=== PATIENT | male | born 1985 | race Two or more races ===

== ENCOUNTER 2024-12-09 08:19 | Outpatient (AMB) | payer OTHER, SELFPAY ==
--- OUTSIDE RECORDS SUMMARY | 2024-12-05 13:00 | XMS_ITS | Encounter Summary ---
Author Organization [facility] Address [address] [place] [phone] Care Team Providers Care Rail Gang Supervisor Name Role Phone Thomas Farmer MD Primary Care Provider [phone] Reason for Visit * Reason Comments Procedure Excision lesion fore head Encounter Details Date Type Department Care Team (Latest Contact Info) Description 12/05/2024 1:00 PM EDT Procedure visit Plastic & Reconstructive Surgery [facility] [address] [place] [phone] Greg Ugarte DO [address] [address] Disorder of soft tissue (Primary Dx) Social History Tobacco Use Types Packs/Day Years Used Date Smoking Tobacco: Never Smokeless Tobacco: Never Alcohol Use Standard Drinks/Week Comments Yes 0 (1 standard drink = 0.6 oz pur e alcohol) Sex and Gender Information Value Date Recorded Sex Assigned at Not on file Legal Sex Male 12:56 PM EST Gender Identity Not on file Sexual Orientation Not on file documented as of this encounter Plan of Treatment Upcoming Encounters Date Type Department Care Team (Late st Contact Info) Description 12/15/2024 3:00 PM EDT Office Visit Plastic & Reconstructive Surgery [facility] [address] [place] [phone] Nhi Alaniz PA [address] [place] [address] [place] [phone] documented as of this encounter Procedures Procedure Name Priority Date/Time Associated Diagnosis Comments TISSUE EXAM Routine 12/05/2024 1:58 PM EDT Disorder of soft tissue documented in this encounter Results * Tissue exam (12/05/2024 1:58 PM EDT) Final Diagnosis Skin, forehead-excision : -LIPOMA 12/08/2024 10:[address] [facility] Clinical Information Disorder of soft tissue M79.9 12/08/2024 10:[address] [facility] Gross Description A. Forehead, excision lesion ink at 12: Labeled forehead . Received in formalin is a 2.1 x 1.8 x 0.5 cm yellow-de la torre fairly well-circumscribe d fibrofatty tissue fragment. The cut surfaces are comprised of glistening yellow adipose tissue. There is no areas of hemorrhage or necrosis. Also received in the same container is a 3.8 x 0.8 cm and oriented de la torre-white skin ellipse excised to depth of 0.6 cm. There is blue ink on one edge designating 12:00 per the requisition. The 9-12-3 o'clock margin is inked blue, the 3-6-9 o'clock margin is inked black, and the epidermis of the 3:00 tip is inked green. The cut surfaces are comprised of de la torre-white to yellow fibroadipose tissue. Multiple Effect Evaporator Operator sections of both tissues are submitted one cassette, three pieces. BG 12/08/2024 10:[address] [facility] Disclaimer Unless otherwise specified, all tissue is 10% NB formalin fixed and paraffin embedded. 12/08/2024 10:[address] [facility] Tissue Forehead structure / Unknown Non-blood Collection / Unknown 12/05/2024 1:58 PM EDT 12/05/2024 1:58 PM EDT us Greg Ugarte DO LAB PATHOLOGY ORDERABLES Fin al Result [facility] [address] [place], [place] [address] [phone] documented in this encounter Visit Diagnoses Diagnosis Disorder of soft tissue- Primary Disorders of soft tissue, unspecified documented in this encounter Care Teams Rail Gang Supervisor Relationship Specialty Start Date End Date Thomas Farmer MD [address] [place] [phone] PCP - General Internal Medicine 10/15/24 documented as of this encounter
--- OUTSIDE RECORDS SUMMARY | 2024-12-09 08:26 | XMS_ITS | Clinical Summary ---
Author Organization [facility] Address [address] [place] [address] Care Team Providers Care Apprentice Cook Name Role Phone Unavailable Primary Care Provider Unavailabl e Social History Tobacco Use Types Packs/Day Years Used Date Smoking Tobacco: Never Assessed Sex and Gender Information Value Date Recorded Sex Assigned at Not on file Legal Sex Male 6:21 PM EDT Gender Identity Not on file Sexual Orientation Not on file Plan of Treatment Health Maintenance Due Date Last Done Comments Hepatitis C Virus Screening 1983 HIV Screening 1996 DTaP/Tdap/Td Vaccines (1 - Tdap) 2002 Hepatitis B Vaccines (1 of 3 - 19+ 3-dose series) 2002 COVID-19 Vaccine (2023-2 5 season) 2024 HPV Vaccines Aged Out No longer eligi ble based on patient's age to complete this topic Pneumococcal Vaccine: Pediat goyo (0-5 Years) and At-Risk Patients (6 to 49 Years) Aged Out No longer eligible b ased on patient's age to complete this topic
--- OUTSIDE RECORDS SUMMARY | 2024-12-09 08:26 | XMS_ITS | Data Portability ---
Author Organization [facility] Behzad Moore [facility] Surgeons [facility], [facility] Address [address] [place] [address] Care Team Providers Care Admin Assistant Name Role Phone ISRA PASTRANAY Primary Care Provider Assessment No assessment recorded. Plan of Treatment Reminders Order Date Submit Date Provider Last Modified By Organization Details Last Modified Time Details Appointments None recorded. Lab None recorded. Referral None recorded. Procedures None recorded. Surgeries None recorded. Imaging XR, foot, 3 or more view - new pt 3 views lorenzo foot wb rm 107 2024 025 rmessenger [facility] Office, [address], [address], [place], [address], 5 11:18:54 XR, knee, 4 or more view - rm 201, left knee pain 2023 024 [email or web address] [facility] Office, [address], [address], [place], [address], 4 11:46:18 XR, foot, 3 or more view - New left foot, room UC2 2023 024 mmolpelton [facility], [address], [address], [place], [address], 4 15:31:30 MRI, foot, w/o contrast - Left foot pain, 5th MT stress fx 2023 024 [facility]), [address] [place], [address], 18:02:19 Medication Orders meloxicam 15 mg tablet 2023 [address] [facility][id number], [address] [place] [address], [address], 15:31:30 meloxicam 15 mg tablet 2023 [address] [facility][id number], [address] [place] [address], [address], 12:33:23 Patient TargetsNo targets recorded. Patient InstructionsNo instructions recorded. Reason for Referral None Reported. Results Created Date Observation Date Name Description Value Unit Range Abnormal Flag Note LastModifiedBy Organization Detail LastModifiedTime 11/30/19 24 12/01/2023 CBC/D /PLT W/ REFLE X OSCAR TIN WBC 17.3 x10e3 /uL 3.4-10 .8 above high normal Not Available [facility] ([facility]) [address] [place], [address], 12/05/2023 00:05:22 11/30/19 24 12/01/2023 CBC/D /PLT W/ REFLE X OSCAR TIN RBC 5.17 x10e6 /uL 4.14-5 .80 normal Not Available [facility] ([facility]) [address] [place], [address], 12/05/2023 00:05:22 11/30/19 24 12/01/2023 CBC/D /PLT W/ REFLE X OSCAR TIN hemoglobin 13.7 g/dL 13.0-1 7.7 normal Not Available [facility] ([facility]) [address] [place], [address], 12/05/2023 00:05:22 11/30/19 24 12/01/2023 CBC/D /PLT W/ REFLE X OSCAR TIN hematocrit 43.5 % 37.5-5 1.0 normal Not Available [facility] ([facility]) [address] [place], [address], 12/05/2023 00:05:22 11/30/19 24 12/01/2023 CBC/D /PLT W/ REFLE X OSCAR TIN MCV 84 fL 79-97 normal Not Available [facility] ([facility]) [address] [facility], [place], [address], 12/05/2023 00:05:22 11/30/19 24 12/01/2023 CBC/D /PLT W/ REFLE X OSCAR TIN MCH 26.5 pg 26.6-3 3.0 below low normal Not Available [facility] ([facility]) [address] [facility], [place], [address], 12/05/2023 00:05:22 11/30/19 24 12/01/2023 CBC/D /PLT W/ REFLE X OSCAR TIN MCHC 31.5 g/dL 31.5-3 5.7 normal Not Available [facility] ([facility]) [address] [place], [address], 12/05/2023 00:05:22 11/30/19 24 12/01/2023 CBC/D /PLT W/ REFLE X OSCAR TIN RDW 13.1 % 11.6-1 5.4 Not Available [facility] ([facility]) [address] [place], [address], 12/05/2023 00:05:22 11/30/19 24 12/01/2023 CBC/D /PLT W/ REFLE X OSCAR TIN platelets 285 x10e3 /uL 150-45 0 normal Not Available [facility] ([facility]) [address] [facility], [place], [address], 12/05/2023 00:05:22 11/30/19 24 12/01/2023 CBC/D /PLT W/ REFLE X OSCAR TIN neutrophils 80 % not estab. normal Not Available [facility] ([facility]) [address] [facility], [place], [address], 12/05/2023 00:05:22 11/30/19 24 12/01/2023 CBC/D /PLT W/ REFLE X OSCAR TIN lymphs 13 % not estab. normal Not Available [facility] ([facility]) [address] [facility], [place], [address], 12/05/2023 00:05:22 11/30/19 24 12/01/2023 CBC/D /PLT W/ REFLE X OSCAR TIN monocytes 6 % not estab. normal Not Available [facility] ([facility]) [address] [facility], [place], [address], 12/05/2023 00:05:22 11/30/19 24 12/01/2023 CBC/D /PLT W/ REFLE X OSCAR TIN eos 0 % not estab. normal Not Available [facility] ([facility]) [address] [facility], [place], [address], 12/05/2023 00:05:22 11/30/19 24 12/01/2023 CBC/D /PLT W/ REFLE X OSCAR TIN basos 0 % not estab. normal Not Available [facility] ([facility]) [address] [facility], [place], [address], 12/05/2023 00:05:22 11/30/19 24 12/01/2023 CBC/D /PLT W/ REFLE X OSCAR TIN immature cells OIL SPRAYER Not Available [facility] ([facility]) [address] [place], [address], 12/05/2023 00:05:22 11/30/19 24 12/01/2023 CBC/D /PLT W/ REFLE X OSCAR TIN neutrophils (absolute) 13.8 x10e3 /uL 1.4-7. 0 above high normal Not Available [facility] ([facility]) [address] [facility] [place], [address], 12/05/2023 00:05:22 11/30/19 24 12/01/2023 CBC/D /PLT W/ REFLE X OSCAR TIN lymphs (absolute) 2.3 x10e3 /uL 0.7-3. 1 normal Not Available [facility] ([facility]) [address] [facility], [place], [address], 12/05/2023 00:05:22 11/30/19 24 12/01/2023 CBC/D /PLT W/ REFLE X OSCAR TIN monocytes(ab solute) 1.0 x10e3 /uL 0.1-0. 9 above high normal Not Available [facility] ([facility]) [address] [facility], [place], [address], 12/05/2023 00:05:22 11/30/19 24 12/01/2023 CBC/D /PLT W/ REFLE X OSCAR TIN eos (absolute) 0.0 x10e3 /uL 0.0-0. 4 normal Not Available [facility] ([facility]) [address] [facility], [place], [address], 12/05/2023 00:05:22 11/30/19 24 12/01/2023 CBC/D /PLT W/ REFLE X OSCAR TIN baso (absolute) 0.0 x10e3 /uL 0.0-0. 2 normal Not Available [facility] ([facility]) [address] [place], [address], 12/05/2023 00:05:22 11/30/19 24 12/01/2023 CBC/D /PLT W/ REFLE X OSCAR TIN immature granulocytes 1 % not estab. Not Available [facility] ([facility]) [address] [place], [address], 12/05/2023 00:05:22 11/30/19 24 12/01/2023 CBC/D /PLT W/ REFLE X OSCAR TIN immature grans (abs) 0.1 x10e3 /uL 0.0-0. 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 Not Available [facility] ([facility]) [address] [facility], [place], [address], 12/05/2023 00:05:22 11/30/1912/01/2023 CBC/D /PLT W/ REFLE X OSCAR TIN hematology comments: OIL SPRAYER Not Available [facility] ([facility]) [address] [facility], [place], [address], 12/05/2023 00:05:22 11/30/19 24 12/04/2023 CBC/D /PLT W/ REFLE X OSCAR TIN ferritin 160 NG/mL 30-400 normal Not Available [facility] ([facility]) [address] [facility], [place], [address], 12/05/2023 00:05:22 11/30/19 24 12/01/2023 ANKIT+R F QN ANKIT direct Negati ve negati ve Not Available [facility] ([facility]) [address] [place], [address], 12/05/2023 00:05:23 11/30/1912/01/2023 ANKIT+R F QN rheumatoid factor (rf) 10.6 IU/mL <14.0 normal Not Available [facility] ([facility]) [address] [place], [address], 12/05/2023 00:05:23 11/30/19 24 12/01/2023 URIC ACID uric acid 8.6 mg/dL 3.8-8. 4 above high normal Jesusa fabien prabhakar t for gout patie nts: <6.0 Not Available [facility] ([facility]) [address], [place], [address], 12/05/2023 00:05:23 10/01/19 24 09/30/2023 MRI, foot, w/o contr ast [facility] Access ion Number : [id number] Patien t Name: Elizabeth laureano, Aditya Medica caleb Record Number : [id number] Date of : 1985 Date of Exam: 2023 Referr ing Physic bonnie: [facility], Diana a [facility] ([facility]) [address], [address] [place] [address] Exam: MR Foot (C-) CPT 85485 - Left Room Descri ption: [facility] Verio 3.0T MR Foot (C-) CPT 46237 CLINIC AL INDICA TION: M79.67 2 - Pain in left foot, , Left foot pain, 5th MT stress fx TECHNI QUE: Multip lanar, multis equenc e non-co ntrast MRI of the left mid to forefo ot was perfor med. COMPAR MARCO: None. FINDIN GS: Bones: Mild bone marrow edema within the proxim al metadi aphysi s of the fourth metata rsal. No eviden ce of fractu re or osteoc hondra l lesion . Mild degene rative change s at the tarsom etatar sarah joints . Tendon s/Liga ments: The visual ized tendon s are normal in signal and morpho logy. The intrin sic ligame nts are intact withou t eviden ce of Lisfra nc injury . Soft Tissue s: No abnorm al edema or other signal abnorm ality. No eviden ce of Chan ?s neurom a.Ther e is focal fluid presen t betwee n the metata rsal heads, especi ally betwee n the first and second metata rsal, third and fourth metata rsals. Other: Dorsal subcut aneous edema presen t. IMPRES MAURY: Mild bone marrow edema within the proxim al metadi aphysi s of the fourth metata rsal, could repres ent a bone contus ion versus stress reacti on. Fluid presen t betwee n the metata rsal heads, could repres ent interm etatar sarah bursit is. I, Iliana Altamirano ra, MD, have review ed the images and report and concur with the reside nt, Anila Stanley MD's, joelle briggs. Electr onical ly Signed By: Iliana Altamirano ra, MD [facility] ([facility]) [address], [place], [address], 10/02/2023 08:39:18 11/28/19 24 11/28/2023 XR, knee, 4 or more view http:/ [email or web address] ?Encry pted=s hAaTro YD8dLq bEUv6g %2BXZw aYqtaq 0bqfl% 2Fg9IQ a4ajBk vP9nXo QUaueC m3YtLR FvZlgJ JJ8mAn HZtai3 1m4845 AC0Kpb XuHWaX eUC8mr 84%3D INTERFACE [facility] [address], [place], [address], 11/28/2023 10:16:44 11/28/19 24 11/28/2023 XR, knee, 4 or more view http:/ [email or web address] ?Encry pted=s hAaTro YD8dLq bEUv6g %2BXZw aYqtaq 0bqfl% 2Fg9IQ a4ajBk vP9nXo QUaueC m3YtLR FvZl JJ8mAn HZtai3 6x2259 AC0Kpb XuHWaX eUC8mr 84%3D INTERFACE [facility] [address], [place], [address], 11/28/2023 10:16:46 01/11/20 24 09/20/2022 imagi ng/di agnos tic resul t No observ ation record ed. [email or web address] Not Available 12/14 04:40:51 01/11/20 24 10/26/2022 imagi ng/di agnos tic resul t No observ ation record ed. [email or web address] Not Available 12/14 04:40:57 01/11/2010/26/2022 imagi ng/di agnos tic resul t No observ ation record ed. [email or web address] Not Available 12/14 04:40:58 01/11/2005/11/2023 imagi ng/di agnos tic resul t No observ ation record ed. [email or web address] Not Available 12/14 04:41:10 09/05/19 25 09/04/2024 XR, foot, 3 or more view http:/ [email or web address] ?Encry pted=s hAaTro YD8dLq bEUv6g %2BXZw aYqtaq 0bqfl% 2Fg9IQ a4ajBk vP9nXo QUaueC m3YtLR FvZlgJ JJ8mAn HZtai3 9e7600 AC0Kla nyBUqC uKiQtr MwF INTERFACE [facility] [address], [place], [address], 09/04/2024 13:24:38 09/05/19 25 09/04/2024 XR, foot, 3 or more view http:/ [email or web address] ?Encry pted=s hAaTro YD8dLq bEUv6g %2BXZw aYqtaq 0bqfl% 2Fg9IQ a4ajBk vP9nXo QUaueC m3YtLR FvZlgJ JJ8mAn HZtai3 2w2531 AC0Kla nyBUqC uKiQtr MwF INTERFACE [facility] [address], [place], [address], 09/04/2024 13:24:40 11/27/19 25 11/20/2024 nerve condu ction study /EMG, lower extre mity (PROC ) No observ ation record ed. [facility] Scheduling Dept [address] [facility], [place], [address], 11/26/2024 15:42:10 Result Notes Documentation Provider Name and Address Organization Details Recorded Time Mri, Foot, W/o Contrast : [facility] Accession Number: [id number] Patient Name: Aditya Levine Date of : 1985 Date of Exam: 09-30-2023 Referring Physician: Esmer Simmons [facility] ([facility]) [address] [facility], [address] [place] [address] Exam: MR Foot (C-) CPT 29463 - Left Room Description: [facility] 3.0T MR Foot (C-) CPT 63783 CLINICAL INDICATION: M79.672 - Pain in left foot, , Left foot pain, 5th MT stress fx TECHNIQUE: Multiplanar, multisequence non-contrast MRI of the left mid to forefoot was performed. COMPARISON: None. FINDINGS: Bones: Mild bone marrow edema within the proximal metadiaphysis of the fourth metatarsal. No evidence of fracture or osteochondral lesion. Mild degenerative changes at the tarsometatarsal joints. Tendons/Ligaments: The visualized tendons are normal in signal and morphology. The intrinsic ligaments are intact without evidence of Lisfranc injury. Soft Tissues: No abnormal edema or other signal abnormality. No evidence of Chan?s neuroma.There is focal fluid present between the metatarsal heads, especially between the first and second metatarsal, third and fourth metatarsals. Other: Dorsal subcutaneous edema present. IMPRESSION: Mild bone marrow edema within the proximal metadiaphysis of the fourth metatarsal, could represent a bone contusion versus stress reaction. Fluid present between the metatarsal heads, could represent intermetatarsal bursitis. I, Iliana Lam MD, have reviewed the images and report and concur with the resident, Tavo Stanley MD's, findings. Electronically Signed By: Iliana Simmons PA-C [address], [place], [address], [place] - [facility] 10/02/2023 08:39:18 Xr, Knee, 4 Or More View : [email or web address] ncrypted=plUoOkeFP4dMvwIRl 6g%6EZMcdJensh2adim%2Fg9IQ j6unMlrC3zOsYPdyyLa7ZzGDZk GocNWW1fAaBNzgm12g0663VY8G wiVoIOnEcCZ9xf68%3D Not Available [facility] 11/28/2023 10:16:45 Xr, Knee, 4 Or More View : [email or web address] ncrypted=ejKuKldIH3gLjvMCj 6g%0SGPnkAortg6opxe%2Fg9IQ h2sqVtbS8qBbRRkawPy3IxZNGp QxkWYM9qYkMJten99d0802QW8G nbDtPWlZyXV1ov75%3D Not Available [facility] 11/28/2023 10:16:46 Xr, Foot, 3 Or More View : [email or web address] ncrypted=qoUqAveRT5aDtiWGs 6g%5ZOTkoAajep8lziw%2Fg9IQ m5sgWjfB3mIgFWwcoHl4QlYOOy FbaDNC9nSrKScft29e7741KS9F lanyBUqCuKiQtrMwF Not Available [facility] 09/04/2024 13:24:39 Xr, Foot, 3 Or More View : [email or web address] ncrypted=zzSwJzbNZ1hCpvASm 6g%4MDUqzEgerf6hoaj%2Fg9IQ b5ejDdgC9wEcUNounJf6IqPXAs IaoKZN4jXjMGgvm34o0993WC7N lanyBUqCuKiQtrMwF Not Available [facility] 09/04/2024 13:24:40 Problems Name Problem SNOMED Code Status Onset Date Resolution Date Notes Provider Name and Address Organization Details Recorded Time Pain in left foot 8902107345860 07 Active 2023 LA serna [place] - [facility] 05/10/202 4 13:07:19 Stress fracture of metatarsal bone of left foot 0145658270065 9108 Active 2023 Esmer carlson PA-C [address], [place], [address], [facility] 4 15:30:52 Pain of left knee joint 2149805875796 07 [facility] 4 10:08:21 Problem Notes None recorded. Procedures Surgical History Date Name Laterality Status Provider Name and Address Organization Details Recorded Time 11/28/2023 Sports Knee 4&1 completed Felipe Flowers PA-C [address], [place], [address], [facility] 11/28/2023 12:30:27 09/03/2023 Sports Knee 4&1 completed Felipe Flowers PA-C [address], [place], [address], [facility] 09/03/2023 16:40:07 Imaging Results None recorded. Procedure Notes None recorded. Medical Equipment None Reported. Allergies No known drug allergies Medications Name Sig Start Date Stop Date Status Note LastModified by Organization Details LastModified Time tizanidine 2 mg tablet TAKE 1 TABLET BY MOUTH EVERY 8 HOURS, FOR 7 DAYS, NEEDED FOR MUSCLE SPASM active Not Available Not Available No t Available diltiazem CD 240 mg capsule,ext ended release 24 hr TAKE 1 CAPSULE BY MOUTH EVERY DAY active Not Available Not Available No t Available meloxicam 15 mg tablet TAKE 1 TABLET BY MOUTH EVERY DAY WITH A MEAL 2024 active Not Available Not Available Not Avai lable prednisone 20 mg tablet TAKE 2 TABLETS BY MOUTH ONCE DAILY FOR 7 DAYS WITH FOOD OR MILK active Not Available Not Available No t Available amlodipine 2.5 mg tablet TAKE 1 TABLET BY MOUTH EVERY DAY active Not Available Not Available No t Available chlorthalid one 25 mg tablet TAKE 1 TABLET BY MOUTH EVERY DAY active Not Available Not Available No t Available allopurinol 100 mg tablet TAKE 1 TABLET BY MOUTH TWICE A DAY active Not Available Not Available No t Available peg-electro lyte solution 420 gram oral solution PLEASE SEE ATTACHED FOR DETAILED DIRECTION S active Not Available Not Available No t Available methylpredn isolone 4 mg tablets in a dose pack TAKE 6 TABLETS ON DAY 1 DIRECTED ON PACKAGE AND DECREASE BY 1 TAB EACH DAY FOR A TOTAL OF 6 DAYS active Not Available Not Available No t Available lisinopril 40 mg tablet TAKE 1 TABLET BY MOUTH EVERY DAY active Not Available Not Available No t Available Thalitone 15 mg tablet TAKE 1 TABLET BY MOUTH EVERY DAY active Not Available Not Available No t Available oxycodone 5 mg tablet TAKE 1 TABLET BY MOUTH EVERY 6 HOURS,X3 DAYS NEEDED FOR PAIN 09/02 completed Not Available Not Available Not Available oxycodone HCl-oxycodo ne-ASA oxyCODONE HCl 5MG Tablet 09/02 completed Statu s: 'Curr ent'; Not Available Not Available Not Available EC-Naproxen 500 mg tablet,curly yed release TAKE 1 TABLET BY MOUTH TWICE A DAY FOR 5 DAYS active Not Available Not Available No t Available Wegovy 1 mg/0.5 mL subcutaneou s pen injector INJECT 1 MG SUBCUTANE OUS INFUSION EVERY 7 DAYS,X4 WEEK(S) active Not Available Not Available No t Available Wegovy 0.5 mg/0.5 mL subcutaneou s pen injector INJECT 0.5 ML SUBCUTANE OUSLY EVERY WEEK DIRECTED. ROTATE INJECTION SITES (ABDOMEN, THIGH OR UPPER ARM) active Not Available Not Available No t Available Vitals Date Recorded Body height Body mass index (BMI) Body weight Provider Name and Address Organization Details Last Updated DateTime 09/03/2023 172.72 cm 44.1 kg/m2 816047.79 g JENNIFER CUETO [facility] 09/03/2023 08:37:55 Date Recorded Body height Body mass index (BMI) Body weight Provider Name and Address Organization Details Last Updated DateTime 09/04/2024 172.72 cm 45 kg/m2 285446.34 g Kareen Mcclure [facility] 09/04/2024 13:18:12 Date Recorded Body height Body mass index (BMI) Body weight Provider Name and Address Organization Details Last Updated DateTime 09/21/2023 172.72 cm 45.3 kg/m2 633474.53 g LA CHAVIS [facility] 09/21/2023 13:07:07 Date Recorded Body height Body mass index (BMI) Body weight Provider Name and Address Organization Details Last Updated DateTime 10/18/2023 172.72 cm 45 kg/m2 634445.34 g LA PALMIRA [facility] 10/18/2023 14:28:17 Date Recorded Body height Body mass index (BMI) Body weight Provider Name and Address Organization Details Last Updated DateTime 11/28/2023 172.72 cm 45 kg/m2 532971.34 g JOHNNIE BRANDEE [facility] 11/28/2023 10:08:11 Social History None recorded. Functional Status None recorded. Mental Status None recorded. Family History Nothing Reported. Medical History No medical history recorded. Past Encounters Encounter ID Performer Location Encounter Start Date Encounter Closed Date Diagnosis/Indication Diagnosis SNOMED-CT Code Diagnosis ICD10 Code Diagnosis Note [id number] RAO Castaneda [address] [place] [address] 09/03/2023 08:29:37 09/24/2023 08:16:25 Pain of right knee joint 7803102682 62651 M25.561 Chondromal acia of right patella 3372407455 3702000 M22.41 [id number] Esmer Simmons [place] [address] 09/21/2023 12:59:57 10/16/2023 12:01:57 Pain in left foot 2162364387 63412 M79.672 Stress fra cture of metatarsal bone of left foot 8922285301 2782373 M84.375A [id number] RAO Romero [address] [place] [address] 10/18/2023 14:13:30 11/20/2023 13:16:42 Stress fracture of metatarsal bone of left foot 7830206889 0474023 M84.375A [id number] RAO Castaneda [address] [place] [address] 11/28/2023 09:49:01 12/17/2023 11:46:18 Pain of left knee joint 5145917564 96976 M25.996 [id number] RAO Yoder [address] [place] [address] 09/04/2024 12:50:13 09/22/2024 11:18:54 Pain in both feet 0565399493 3552286 M79.671 M79.672 Health Concerns Section Related Observation LastModified by Organization Detai ls LastModified Time None Recorded Concern Status LastModified by Organization Details LastModified Time None Recorded Advance Directives Directive None Recorded Payers Insurance Date Sequence Insurance Name Policy Number Policy Baez Covered Member ID Baez Member ID Guarantor Name 10/18/2023 1 [facility] - DIRECT CONNECTORCARE TYPE I (HMO) Aditya Carmenatty [id number] Aditya Carmenatty 09/02/2024 1 [facility] [id number] Aditya Carmenatty [id number] Aditya Carmenatty 10/18/2023 1 [facility] - DIRECT CONNECTORCARE TYPE I (HMO) Aditya Carmenatty [id number] Aditya Carmenatty 09/02/2024 2 [place] [facility] Aditya Carmenatty [id number] Aditya Carmenatty 09/22/2024 1 [facility] ([facility] [id number] Aditya Carmenatty [id number] Aditya Carmenatty 10/09/2024 2 [facility]LY [facility] - DIRECT - [place] (HMO) [id number] Aditya Carmenatty [id number] Aditya Carmenatty
--- NOTE | 2024-12-09 11:10 | A.OFFVIS_ITS ---
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 Allergies No Known Allergies (No Known Allergies*) Allergy (Verified 12/09/24 11:11) Medication List - Last Reconciled 12/09/24 by Sesar Nick MD allopurinol 100 mg PO DAILY amlodipine-benazepril 2.5-10 mg 1 cap PO DAILY chlorthalidone 25 mg PO DAILY diltiazem HCl ER (Tiazac) 240 mg PO DAILY lisinopril 40 mg PO DAILY meloxicam 15 mg PO DAILY 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 Regained all back Wakes up: 3am, Sleeps: 10pm Breakfast: skips Lunch: 1pm (rice, beans, chicken) Dinner: 6pm Snacks: 2 bananas before lunch, 7-8pm (occasionally cookies) Exercise: none Beverages: Coffee: none, Tea: 1 cup/d with milk and sugar, Soda: none, Juice: none, ETOH: none PFSH Medical History (Updated 12/09/24 @ 11:18 by Sesar Nick MD) History of herniated intervertebral disc Asthma DJD (degenerative joint disease) GERD (gastroesophageal reflux disease) Aortic stenosis Hypertension Morbid obesity Surgical History (Updated 12/09/24 @ 11:18 by Sesar Nick MD) History of back surgery Family History (Updated 11/19/24 @ 14:58 by Krystina Bowers CMA) Mother Hypertension Heart problem Father Diabetes type 2 Hypertension Sleep apnea Daughter No problems noted. Daughter No problems noted. Social History (Updated 11/19/24 @ 14:58 by Krystina Bowers CMA) Alcohol intake: current Alcohol intake frequency: holidays/special occasions only Patient Tobacco Use Status: Never used Tobacco Telehealth Telehealth Telehealth Platform: Telephone Location of provider rendering services: practice address Location of patient: address on file Patient Identification confirmed using: Name, : Yes Telehealth method: voice only Patient verbally consented to treatment: Yes Patient verbally consented to billing insurance company: Yes Patient informed of any privacy concerns related to visit: Yes Minutes spent on Phone/Video with Pt.: 45 Assessment & Plan Assessment & Plan (1) Morbid obesity: Code(s): E66.01 - Morbid (severe) obesity due to excess calories Category: Medical Plan: 1. Plan for lap sleeve gastrectomy. If diaphragmatic or ventral hernias are present at time of surgery, these will be repaired laparoscopically as well. I emphasized the importance of close follow-up, adherence to instructions and good communication. The surgery does not replace the need to change your lifestlyle which is the cause of the obesity problem. The surgery provides the motivation to try again to change your lifestyle, it reduces the appetite and make the transition to a better lifestyle easier and doubles the amount of weight you would lose compared to doing the lifestyle change without the surgery. You will need to be on a liquid diet with protein shakes for 2 weeks before surgery to maximize weight loss and boost your nutritional status to recover better from surgery and also for the first two weeks after surgery to let the stomach heal before we introduce other foods. After the first 2 weeks we will introduce protein bars and soft foods like scrambled eggs, cottage cheese and yogurt and after the 6th week will introduce meat, fish and cooked vegetables in small amounts. Over time you should be able to eat everything in small amounts. Side effects like nausea, vomiting, heartburn or abdominal pain are not common in the practice unless you are not following in the practice. This operation requires lifetime commitment to following in our practice and communication with me. You will much less weight and experience side effects if you don?t communicate or not following in the practice. Complications are rare and in our practice is about 1/10 of the national average. However, you can develop bleeding that may require transfusion (hasn?t happened for year in the practice), you may from complications (we did not have any deaths in the practice) and infections. Infections are usually a result of breakdown in communication or not understanding or following directions correctly. They are difficult to treat, they can happen during the first 6 weeks, they may require to be in the hospital for weeks or even months, not being able to eat by mouth and you may have drains and surgeries to try and correct the issue. Other risks and complications include possible conversion to an open procedure, leaks, small bowel obstruction, blood clots, cardiac, or pulmonary complications, as intermediate complications such as ulcers, insufficient weight loss and vitamin deficiencies. 2.Nutritional counseling. Start with one premade PREMIER protein (buy at [employer], or [employer], or [employer]) shake (8oz of PREMIER and NOT the whole bottle) at 10am- 12pm, 1 protein bar (16gr Fit Crunch protein bars, buy at [employer], [employer] or [employer]) at 1pm-3pm, another premade PREMIER protein (buy at [employer], or [employer], or [employer]) shake () 8oz of PREMIER and NOT the whole bottle) at 4pm-6pm, dinner at 7pm (10 forks of protein and 10 forks of salad/vegetables) and one more [employer] protein bar after dinner at 9pm-11pm. So you do 2 protein shakes, 2.5 protein bars and one meal per day. Meal to include lean meat (beef, fish, pork, turkey, chicken), or south korean yogurt, or egg whites, or beans with a salad with olive oil and fruits (berries, pears, apples, kiwi). Avoid salt, breads, potatoes, rice, pasta, desserts. 3. Each shake would be drunk slowly, like coffee in a period of 2 hours. 4. Cut each bar in 4 pieces and eat each piece in 30min to make each bar last 2 hours. 5. I emphasized the importance of measuring accurately the food portion and measure it when serving the food in plate 6. The meal portions include 10 full-size forks of meat and 10 full-size forks of salad. You always eat the meat portion but you can replace up to 5 forks for salad/vegetables with rice, potatoes or pasta, or a fruit if you like. The less you do it the better weight loss will be. 7. One full-size fork is what it can be scooped on the fork without falling aside and not what can be bit with the fork. Use regular forks like those you find in a typical restaurant. 8. Please buy the body composition scale we discussed and send me weight measurements as soon as possible and then once a week. Always include your diet and exercise plan. 9. Start walking outside daily, tracking calories with a goal of 300 calories per day, daily. Goal is to burn 2000 calories per week on exercise, which means either 300 calories daily. 10. The best choice would be to purchase a stationary bike at home that can track calories. Once you get the bike, please start stationary bike at a resistance level of 4.0 Increase level by 1.0 every 3 min to a max level of 10.0. Stay at this level for 3 min and then return to level 4.0 and repeat same steps until 300 calories are burned. Goal is to burn 2000 calories per week on exercise 11. Goal is to lose at least 1.5-2lbs per week 12. Goal to lose 10% of your weight before surgery, which is about 30lbs. Ultimate weight goal: 270lbs before surgery 13. Please follow the diet plan exactly without any change. If you don't like something about the plan or you feel hungry you need to communicate with me so I can help you revise the plan. You should not change the plan yourself 14. To be scheduled for EGD to assess the stomach's anatomy. The possibility of biopsies was discussed. Patient needs to avoid use of NSAIDs and aspirin for 1 week prior to EGD. You must be on liquids only the day before your endoscopy. Risks of perforation and bleeding was discussed with the patient. This will be an outpatient procedure with IV sedation. 15. As of tomorrow, please send me a picture of your meal plate after you measure it, but before you consume it. Orders: Orders Hemoglobin A1c Today E66.01 - Morbid (severe) obesity due to excess calories, I10 - Essential (primary) hypertension, I35.0 - Nonrheumatic aortic (valve) stenosis, J45.909 - Unspecified asthma, uncomplicated, K21.9 - Gastro-esophageal reflux disease without esophagitis H Pylori Breath Test Today E66.01 - Morbid (severe) obesity due to excess calories, I10 - Essential (primary) hypertension, I35.0 - Nonrheumatic aortic (valve) stenosis, J45.909 - Unspecified asthma, uncomplicated, K21.9 - Gastro- esophageal reflux disease without esophagitis Complete Blood Count Auto Diff Today E66.01 - Morbid (severe) obesity due to excess calories, I10 - Essential (primary) hypertension, I35.0 - Nonrheumatic aortic (valve) stenosis, J45.909 - Unspecified asthma, uncomplicated, K21.9 - Gastro-esophageal reflux disease without esophagitis Lipid Panel Today E66.01 - Morbid (severe) obesity due to excess calories, I10 - Essential (primary) hypertension, I35.0 - Nonrheumatic aortic (valve) stenosis, J45.909 - Unspecified asthma, uncomplicated, K21.9 - Gastro-esophageal reflux disease without esophagitis Comprehensive Met. Panel Today E66.01 - Morbid (severe) obesity due to excess calories, I10 - Essential (primary) hypertension, I35.0 - Nonrheumatic aortic (valve) stenosis, J45.909 - Unspecified asthma, uncomplicated, K21.9 - Gastro- esophageal reflux disease without esophagitis US abdomen comp w elastography Today E66.01 - Morbid (severe) obesity due to excess calories, I10 - Essential (primary) hypertension, I35.0 - Nonrheumatic aortic (valve) stenosis, J45.909 - Unspecified asthma, uncomplicated, K21.9 - Gastro-esophageal reflux disease without esophagitis XR chest 2V Today E66.01 - Morbid (severe) obesity due to excess calories, I10 - Essential (primary) hypertension, I35.0 - Nonrheumatic aortic (valve) stenosis, J45.909 - Unspecified asthma, uncomplicated, K21.9 - Gastro-esophageal reflux disease without esophagitis ECG 12 lead EKG Today E66.01 - Morbid (severe) obesity due to excess calories, I10 - Essential (primary) hypertension, I35.0 - Nonrheumatic aortic (valve) stenosis, J45.909 - Unspecified asthma, uncomplicated, K21.9 - Gastro-esophageal reflux disease without esophagitis FL upper GI w air Today E66.01 - Morbid (severe) obesity due to excess calories, I10 - Essential (primary) hypertension, I35.0 - Nonrheumatic aortic (valve) stenosis, J45.909 - Unspecified asthma, uncomplicated, K21.9 - Gastro- esophageal reflux disease without esophagitis Insulin Today E66.01 - Morbid (severe) obesity due to excess calories, I10 - Essential (primary) hypertension, I35.0 - Nonrheumatic aortic (valve) stenosis, J45.909 - Unspecified asthma, uncomplicated, K21.9 - Gastro-esophageal reflux disease without esophagitis IRON PROFILE Today E66.01 - Morbid (severe) obesity due to excess calories, I10 - Essential (primary) hypertension, I35.0 - Nonrheumatic aortic (valve) stenosis, J45.909 - Unspecified asthma, uncomplicated, K21.9 - Gastro-esophageal reflux disease without esophagitis Vitamin B12 and Folate Today E66.01 - Morbid (severe) obesity due to excess calories, I10 - Essential (primary) hypertension, I35.0 - Nonrheumatic aortic (valve) stenosis, J45.909 - Unspecified asthma, uncomplicated, K21.9 - Gastro- esophageal reflux disease without esophagitis Zinc Today E66.01 - Morbid (severe) obesity due to excess calories, I10 - Essential (primary) hypertension, I35.0 - Nonrheumatic aortic (valve) stenosis, J45.909 - Unspecified asthma, uncomplicated, K21.9 - Gastro-esophageal reflux disease without esophagitis C Reactive Protein Today E66.01 - Morbid (severe) obesity due to excess calories, I10 - Essential (primary) hypertension, I35.0 - Nonrheumatic aortic (valve) stenosis, J45.909 - Unspecified asthma, uncomplicated, K21.9 - Gastro- esophageal reflux disease without esophagitis Vitamin B1 Today E66.01 - Morbid (severe) obesity due to excess calories, I10 - Essential (primary) hypertension, I35.0 - Nonrheumatic aortic (valve) stenosis, J45.909 - Unspecified asthma, uncomplicated, K21.9 - Gastro-esophageal reflux disease without esophagitis Vitamin A Today E66.01 - Morbid (severe) obesity due to excess calories, I10 - Essential (primary) hypertension, I35.0 - Nonrheumatic aortic (valve) stenosis, J45.909 - Unspecified asthma, uncomplicated, K21.9 - Gastro-esophageal reflux disease without esophagitis TSH reflex Free T4 Today E66.01 - Morbid (severe) obesity due to excess calories, I10 - Essential (primary) hypertension, I35.0 - Nonrheumatic aortic (valve) stenosis, J45.909 - Unspecified asthma, uncomplicated, K21.9 - Gastro-esophageal reflux disease without esophagitis Ferritin Today E66.01 - Morbid (severe) obesity due to excess calories, I10 - Essential (primary) hypertension, I35.0 - Nonrheumatic aortic (valve) stenosis, J45.909 - Unspecified asthma, uncomplicated, K21.9 - Gastro-esophageal reflux disease without esophagitis Vitamin D 25-OH Total Today E66.01 - Morbid (severe) obesity due to excess calories, I10 - Essential (primary) hypertension, I35.0 - Nonrheumatic aortic (valve) stenosis, J45.909 - Unspecified asthma, uncomplicated, K21.9 - Gastro- esophageal reflux disease without esophagitis Referrals Nutrition/Dietitian Referral E66.01 - Morbid (severe) obesity due to excess calories, I10 - Essential (primary) hypertension, I35.0 - Nonrheumatic aortic (valve) stenosis, J45.909 - Unspecified asthma, uncomplicated, K21.9 - Gastro- esophageal reflux disease without esophagitis Behavioral Health Referral E66.01 - Morbid (severe) obesity due to excess calories, I10 - Essential (primary) hypertension, I35.0 - Nonrheumatic aortic (valve) stenosis, J45.909 - Unspecified asthma, uncomplicated, K21.9 - Gastro- esophageal reflux disease without esophagitis
[2024-12-09 11:22] VITALS: BMI 45.1
== END 2024-12-09 11:51 | disposition home or self-care (01) ==
LOC: HO.HBS 08:19
PROVIDERS: PCP Nurse Practitioner Family; Visit Provider Surgery
DX: E66.01 Morbid (severe) obesity due to excess calories (principal)
CPT/HCPCS: 99204

== ENCOUNTER 2024-12-12 13:41 | Outpatient (REF) | payer OTHER, SELFPAY ==
--- NOTE | ~2024-12-12 | XR_ITS ---
EXAMINATION: XR CHEST CLINICAL INFORMATION: E66.01 - Morbid (severe) obesity due to excess calories COMPARISON: None available. TECHNIQUE: 2 views of the chest were obtained. FINDINGS: The cardiac, hilar, and mediastinal contours are normal. The lungs are clear bilaterally. There is no pneumothorax or pleural effusion. There is no focal osseous or soft tissue abnormality. XR/XR chest 2V IMPRESSION: Normal chest. Electronically signed by: William Miller MD 12/12/2024 02:22 PM EDT
--- OUTSIDE RECORDS SUMMARY | 2024-12-12 13:45 | XMS_ITS | Clinical Summary ---
Author Organization [facility] Address [address] [place] [address] Care Team Providers Care Environmental Planner Name Role Phone Unavailable Primary Care Provider [...]
--- OUTSIDE RECORDS SUMMARY | 2024-12-12 13:45 | XMS_ITS | Clinical Summary ---
Author Organization [address] [place] [address] [place] [phone] Phone Care Team Providers Care Cleater Name Role Phone Thomas Farmer MD Primary Care Provider [phone] Allergies Active Allergy Reactions Criticality Noted Date Comments Hydrochlorothiazide Hypokalemia 11/21/2024 Spironolactone 11/21/2024 Gynaecomastia Medications acetaminophen (TYLENOL) 325 mg tablet Take 2 tablets (650 mg total) by mouth. 05/27/2021 Active albuterol HFA (PROAIR HFA ; PROVENTIL HFA ; VENTOLIN HFA) 90 mcg/actuation inhaler Inhale 2 puffs by mouth. 05/24/2017 Active allopurinoL (ZYLOPRIM) 100 mg tablet Take 1 tablet (100 mg total) by mouth 2 (two) times a day. 07/23/2024 Active amLODIPine (NORVASC) 2.5 mg tablet Take 1 tablet (2.5 mg total) by mouth 1 (one) time each day. 02/25/2024 Active budesonide (PULMICORT) 180 mcg/actuation inhaler Inhale 2 puffs by mouth. 05/24/2017 Active chlorthalidone (HYGROTON) 25 mg tablet Take 1 tablet (25 mg total) by mouth 1 (one) time each day. 05/02/2024 Active lisinopril (PRINIVIL,ZESTR IL) 40 mg tablet Take 1 tablet (40 mg total) by mouth 1 (one) time each day. 10/27/2024 Active meloxicam (MOBIC) 15 mg tablet Take 1 tablet (15 mg total) by mouth 1 (one) time each day. with food 11/12/2024 Active naproxen (EC NAPROSYN) 500 mg EC tablet Take 1 tablet (500 mg total) by mouth 2 (two) times a day. Active tiZANidine (ZANAFLEX) 2 mg tablet TAKE 1 TABLET BY MOUTH EVERY 8 HOURS, FOR 7 DAYS, NEEDED FOR MUSCLE SPASM Active dilTIAZem CD (CARDIZEM CD) 240 mg 24 hr capsule Take 1 capsule (240 mg total) by mouth 1 (one) time each day. 10/26/2024 Active Active Problems Problem Noted Date Diagnosed Date Disorder of soft tissue 11/21/2024 Encounters Date Type Department Care Team Description 12/05/2024 1:00 PM EDT Procedure visit Plastic & Reconstructive Surgery [facility] [address] [place] [address] Greg Ugarte DO Disorder of soft tissue (Primary Dx) 11/21/2024 1:30 PM EDT Consult Plastic & Reconstructive Surgery [facility] [address] [place] [phone] Jimmy Dunn PA Disorder of soft tissue (Primary Dx) from Last 3 Months Social History Tobacco Use Types Packs/Day Years Used Date Smoking Tobacco: Never Smokeless Tobacco: Never Tobacco Cessation:Counseling Given: Not Answered Alcohol Use Standard Drinks/Week Comments Yes 0 (1 standard drink = 0.6 oz pur e alcohol) Sex and Gender Information Value Date Recorded Sex Assigned at Not on file Legal Sex Male 12:56 PM EST Gender Identity Not on file Sexual Orientation Not on file Obstetrics History Last Filed Vital Signs Vital Sign Reading Time Taken Comments Blood Pressure 116/77 11/21/2024 1:07 PM EDT Pulse 74 11/21/2024 1:07 PM EDT Temperature - - Respiratory Rate - - Oxygen Saturation - - Inhaled Oxygen Concentration - - Weight 136 kg (299 lb 12.8 oz) 11/21/2024 1:07 P M EDT Height 172.7 cm (5' 8 ) 11/21/2024 1:07 PM EDT Body Mass Index 45.58 11/21/2024 1:07 PM EDT Plan of Treatment Upcoming Encounters Date Type Department Care Team (Late st Contact Info) Description 12/15/2024 3:00 PM EDT Office Visit Plastic & Reconstructive Surgery [facility] [address] [facility] [facility] [address] [place] [phone] Nhi Alaniz PA [address] [facility] [address] [place] [address] Health Maintenance Due Date Last Done Comments Hepatitis A Vaccines (1 of 2 - Risk 2-dose series) 2002 Cholesterol Screening (Lipid Panel) 04/11/2022 HIV Screening 04/11/2022 Hepatitis C Screening 04/11/2022 Social Influencers of Health Screening 04/11/2022 Hypertension/CHF/CAD Annual BMP Blood Test 04/28/2022 COVID-19 Vaccine ( season) 2024 07/24/2021, 01/27/2021, 01/06/2021 Depression Screening 05/14/2024 Influenza Vaccine (#1) 2025 , 03/05/2023, 03/12/2022, Additional history exists DTaP,Tdap,and Td Vaccines (3 - Td or Tdap) 07/26/2028 07/26/2018, 08/05/2014 Pneumococcal Vaccine: Pediatrics (0 to 5 Years) and At-Risk Patients (6 to 49 Years) (3 of 3 - PCV20 or PCV21) 2033 10/22/2018, 01/25/2017 Hepatitis B Vaccines Completed 03/01/2024, 03/01/2024, 01/17/2024 HIB Vaccines Aged Out No longer eligi ble based on patient's age to complete this topic HPV Vaccines Aged Out No longer eligi ble based on patient's age to complete this topic IPV Vaccines Aged Out No longer eligi ble based on patient's age to complete this topic MMR Vaccines Aged Out No longer eligi ble based on patient's age to complete this topic Meningococcal ACWY Vaccine Aged Out N o longer eligible based on patient's age to complete this topic Meningococcal B Vaccine Aged Out No l onger eligible based on patient's age to complete this topic RSV Immunization Patients Under 20 months Aged Out No longer eligible based on patient's age to complete this topic Varicella Vaccines Aged Out No longer eligible based on patient's age to complete this topic Procedures Procedure Name Priority Date/Time Associated Diagnosis Comments TISSUE EXAM Routine 12/05/2024 1:58 PM EDT Disorder of soft tissue from Last 3 Months Results * Tissue exam (12/05/2024 1:58 PM EDT) Final Diagnosis Skin, forehead-excision : -LIPOMA 12/08/2024 10:35 AM EDT [facility] Clinical Information Disorder of soft tissue M79.9 12/08/2024 10:35 AM EDT [facility] Gross Description A. Forehead, excision [...] de la torre-white to yellow fibroadipose tissue. Longitudinal Float Operator sections of both tissues are submitted one cassette, three pieces. BG 12/08/2024 10:35 AM EDT [facility] Disclaimer Unless otherwise specified, all tissue is 10% NB formalin fixed and paraffin embedded. 12/08/2024 10:35 AM EDT [facility] Tissue Forehead structure / Unknown Non-blood Collection / Unknown 12/05/2024 1:58 PM EDT 12/05/2024 1:58 PM EDT Greg Ugarte DO LAB PATHOLOGY ORDERABLES Fin al Result [facility] [address] [place] [address], from Last 3 Months Insurance [facility] Care Teams Cleater Relationship Specialty Start Date End Date Thomas Farmer MD [address] [place] [phone] PCP - General Internal Medicine 10/15/24
--- NOTE | 2024-12-12 13:48 | ECG_ITS ---
Test Reason : obesity Blood Pressure : */* mmHG Vent. Rate : 62 BPM Atrial Rate : 62 BPM P-R Int : 154 ms QRS Dur : 94 ms QT Int : 440 ms P-R-T Axes : 29 -11 -6 degrees QTcB Int : 446 ms Normal sinus rhythm Normal ECG When compared with ECG of 11-Jun-2014 16:28, Vent. rate has decreased by 36 bpm Referred By: Sesar Nick Electronically Signed By: YESSENIA HOOVER MD
[2024-12-12 13:55] LABS: MANUAL DIFF FLAG NO
[2024-12-12 14:15] LABS: Hematocrit 41.3 % (42.0-52.0); Hemoglobin 13.8 g/dl (14.0-18.0); Imm Gran Abs Auto 0.03 X10*3/uL (0.00-0.03); Imm Gran Pct Auto 0.3 % (0.0-0.4); Lymphocytes Absolute Auto 3.2 X10*3/uL (1.2-4.9); Mean Corpuscular HGB Conc 33.4 g/dl (31.0-36.0); Mean Corpuscular Hemoglobin 26.5 pg (27.0-33.0); Mean Corpuscular Volume 79.4 fL (80.0-98.0); NRBC Abs Auto 0.000 X10*3/uL (0.0-0.012); NRBC Pct Auto 0.0 /100WBC (0.0-0.2); Platelet Count 235 X10*3/uL (160-400); Red Blood Count 5.20 X10*6/uL (4.60-5.80); White Blood Count 11.3 X10*3/uL (4.8-10.8)
[2024-12-12 15:02] LABS: Hemoglobin A1C 143.6859 umol/L; Total Hemoglobin (HGBA1C) 3624.0186 umol/L
[2024-12-12 15:10] LABS: Alanine Aminotransferase 94 U/L (0-40); Albumin Level 4.7 g/dL (3.5-5.0); Alkaline Phosphatase 55 U/L (39-117); Anion Gap 11 (12-20); Aspartate Amino Transferase 52 U/L (5-37); Blood Urea Nitrogen 11 mg/dL (9-16); Calcium 9.5 mg/dL (8.4-10.2); Carbon Dioxide 30 mmol/L (22-29); Chloride 102 mmol/L (96-108); Cholesterol 185 mg/dL (<200); Estimated Glomerular Filt Rate > 60; HDL Cholesterol 42 mg/dL (>40); Iron 94 mcg/dL (45-160); Percent Iron Saturation 30 % (15-50); Potassium 3.3 mmol/L (3.3-5.1); Sodium 140 mmol/L (135-145); Total Iron Binding Capacity 310 mcg/dL (228-428); Total Protein 7.6 g/dL (6.5-8.0); Triglycerides 121 mg/dL (<150); Unsaturated Iron Binding 216 ug/dL
[2024-12-12 15:18] LABS: Ferritin 121 ng/mL (20-250)
[2024-12-12 15:26] LABS: Folate 15.1 ng/mL (> or = 4.0); Vitamin B12 288 pg/mL (200-900)
== END 2024-12-12 13:42 | disposition home or self-care (01) ==
LOC: HO.LAB 13:41
PROVIDERS: PCP Nurse Practitioner Family; Visit Provider Surgery
DX: I10 Essential (primary) hypertension (principal); I35.0 Nonrheumatic aortic (valve) stenosis; K21.9 Gastro-esophageal reflux disease without esophagitis; J45.909 Unspecified asthma, uncomplicated; E66.01 Morbid (severe) obesity due to excess calories
CPT/HCPCS: 36415; 71046; 80053; 80061; 82306; 82607; 82728; 82746; 83036; 83525; 83540; 84425; 84443; 84590; 84630; 85025; 86140; 93005

== ENCOUNTER → 2024-12-12 13:48 | Outpatient (BNV) | payer OTHER, SELFPAY | PROVIDERS: PCP Nurse Practitioner Family; Visit Provider Internal Medicine Cardiovascular Disease | DX: E66.9 Obesity, unspecified (principal) | CPT/HCPCS: 93010 ==

== ENCOUNTER → 2024-12-12 14:05 | Outpatient (BNV) | payer OTHER, SELFPAY | PROVIDERS: PCP Nurse Practitioner Family; Visit Provider Radiology Diagnostic Radiology | DX: E66.01 Morbid (severe) obesity due to excess calories (principal) | CPT/HCPCS: 71046 ==

== ENCOUNTER 2025-01-15 10:41 | Day surgery (SDC) | payer OTHER, SELFPAY ==
--- OUTSIDE RECORDS SUMMARY | 2024-12-22 08:04 | XMS_ITS | Clinical Summary ---
Author Organization [facility] Address [address] [place] [address] Care Team Providers Care Truck Headlight Assembler Name Role Phone Unavailable Primary Care Provider [...] of 3 - 19+ 3-dose series) 2002 HPV Vaccines (1 - 3-dose SCD M series) 2010 COVID-19 Vaccine (2023-2 5 season) 2024 Pneumococcal Vaccine: Pediat goyo (0-5 Years) and At-Risk Patients (6 to 49 Years) Aged Out No longer eligible b ased on patient's age to complete this topic
--- OUTSIDE RECORDS SUMMARY | 2024-12-22 08:04 | XMS_ITS | Clinical Summary ---
Author Organization [address] [place] [address] [place] [phone] Phone Care Team Providers Care Trading Analyst Name Role Phone Thomas Farmer MD Primary Care Provider [phone] Allergies Active Allergy Reactions Criticality Noted Date [...] Encounters Date Type Department Care Team Description 12/15/2024 3:00 PM EDT Office Visit Plastic & Reconstructive Surgery [address] [phone] Nhi Alaniz PA Lipoma of face (Primary Dx) 12/05/2024 1:00 PM EDT Procedure visit Plastic & Reconstructive Surgery [address] [address] Greg Ugarte DO Disorder of soft tissue (Primary Dx) 11/21/2024 1:30 PM EDT Consult Plastic & Reconstructive Surgery [address] [address] Jimmy Dunn PA Disorder of soft tissue [...] 11/21/2024 1:07 PM EDT Plan of Treatment Health Maintenance Due Date Last Done Comments Hepatitis A Vaccines (1 of 2 - Risk 2-dose series) 2002 Cholesterol Screening (Lipid Panel) 04/11/2022 HIV Screening 04/11/2022 Hepatitis C Screening 04/11/2022 Social Influencers of Health Screening 04/11/2022 Hypertension/CHF/CAD Annual BMP Blood Test 04/28/2022 COVID-19 Vaccine (4 - season) 2024 07/24/2021, 01/27/2021, 01/06/2021 Depression Screening [...] forehead-excision : -LIPOMA 12/08/2024 10:35 AM EDT [facility] Clinical Information Disorder of soft tissue M79.9 12/08/2024 10:35 AM EDT [facility] Gross Description A. Forehead, [...] de la torre-white to yellow fibroadipose tissue. Chef Broiler Or Fry sections of both tissues are submitted one cassette, three pieces. BG 12/08/2024 10:35 AM EDT [facility] Disclaimer Unless otherwise specified, all tissue is 10% NB formalin fixed and paraffin embedded. 12/08/2024 10:35 AM EDT [facility] Tissue Forehead structure / Unknown Non-blood Collection / Unknown 12/05/2024 1:58 PM EDT 12/05/2024 1:58 PM EDT us Greg Ugarte DO LAB PATHOLOGY ORDERABLES Fin al Result [facility] [address] [place] [address], from Last 3 Months Insurance [facility] [address] [place] [phone] Care Teams Trading Analyst Relationship Specialty Start Date End Date Thomas Farmer MD [address] [place] [phone] PCP - General Internal Medicine 10/15/24
[2025-01-13 08:09] VITALS: BMI 45.0
--- NOTE | 2025-01-14 08:55 | HO.ANESPROP2 ---
HPI - Anesthesia Eval Consult details Narrative: 39 yr old male for upper endoscopy Morbid obesity with BMI 45 MELANIA: on CPAP Bicuspid aortic valve: borderline aortic stenosis, mild to moderate regurgitation with preserved LVEF Dilated ascending aorta: on echo 02/2024 (*see below) PENDING SALE TO [facility] Active Problems Active Problems: All Active Problems (Updated 12/17/24 @ 18:27 by Sesar Nick MD) Vitamin B12 deficiency (Acute) Asthma (Acute) DJD (degenerative joint disease) (Acute) GERD (gastroesophageal reflux disease) (Acute) Aortic stenosis (Acute) Hypertension (Acute) Morbid obesity (Acute) Past Medical History Medical History (Updated 12/17/24 @ 18:27 by Sesar Nick MD) History of herniated intervertebral disc Asthma DJD (degenerative joint disease) GERD (gastroesophageal reflux disease) Aortic stenosis Hypertension Morbid obesity Family History Family History (Updated 11/19/24 @ 14:58 by Krystina Bowers CMA) Mother Hypertension Heart problem Father Diabetes type 2 Hypertension Sleep apnea Daughter No problems noted. Daughter No problems noted. Surgical History Surgical History (Updated 12/09/24 @ 11:18 by Sesar Nick MD) History of back surgery Social History Social History (Updated 11/19/24 @ 14:58 by Krystina Bowers CMA) Alcohol intake: current Alcohol intake frequency: holidays/special occasions only Patient Tobacco Use Status: Never used Tobacco Meds Allergies Allergy/AdvReac Type Severity Reaction Status Date / Time No Known Allergies (No Known Allergy Verified 12/09/24 11:11 Allergies*) Home Medications ?Medication ?Instructions ?Recorded ?Confirmed ?Last Taken ?Type allopurinol 100 mg tablet 100 mg PO DAILY 11/21/24 12/09/24 Unknown History amlodipine 2.5 mg-benazepril 10 mg 1 cap PO DAILY 11/21/24 12/09/24 Unknown History capsule chlorthalidone 25 mg tablet 25 mg PO DAILY 11/21/24 12/09/24 Unknown History diltiazem HCl 240 mg capsule,24 240 mg PO DAILY 11/21/24 12/09/24 Unknown History hr,extended release (Tiazac) lisinopril 40 mg tablet 40 mg PO DAILY 11/21/24 12/09/24 Unknown History meloxicam 15 mg tablet 15 mg PO DAILY 07/11/25 07/29/25 Unknown History Exam Height,Weight and Vital Signs: Height 5 ft 8 in Weight 134.263 kg Pertinent Lab Results Pertinent Lab Results: Laboratory Tests 12/12/24 13:53 WBC 11.3 H RBC 5.20 Hgb 13.8 L Hct 41.3 L Plt Count 235 Sodium 140 Potassium 3.3 Chloride 102 BUN 11 Creatinine 0.92 Narrative Narrative: EKG 12/2024 Vent. Rate : 62 BPM Atrial Rate : 62 BPM P-R Int : 154 ms QRS Dur : 94 ms QT Int : 440 ms P-R-T Axes : 29 -11 -6 degrees QTcB Int : 446 ms Normal sinus rhythm Normal ECG When compared with ECG of 11-Jun-2014 16:28, Vent. rate has decreased by 36 bpm ECHO 02/2024 Left atrium is mildly dilated Aortic valve is poorly visualized on the parasternal short axis view, it is likely bicusid The aortic valve appears mildly calcified There is mild aortic stenosis with peak gradient of 37 mmHg and mean gradient of 19 mmHg THere is mild aortic regurgitation There is mild dilation of ascending aorta measuring 42 mm in tubular section The left ventricle is normal in size; LV systolic function is normal The LVEF is 60-65% There are no regional wall motion abnormalities Normal diastolic function
[2025-01-15 11:28] VITALS: BMI 40.7
--- NOTE | 2025-01-15 11:29 | PC.NURSE ---
OR nurse updated that patient ate solid food yesterday. waiting for her to update surgeon and see if patient will be having his procedure today.
[2025-01-15] MEDS: Lactated Ringers 1,000 ML 80 ML IVCONT (11:51)
--- NOTE | 2025-01-15 11:52 | PC.NURSE ---
dr. nuñez aware that patient ate cantaloupe/strawberries and 2 jellos yesterday along with protein shakes. doctor stated okay to have procedure today.
[2025-01-15 11:53] VITALS: BP 117/69; PULSE 67; RESP 18; TEMP 36.7; O2SAT 97
--- NOTE | 2025-01-15 12:33 | P.BOP_ITS ---
Brief Operative Note Date of Service: 01/15/25 Pre-op diagnosis: GERD Procedure: PROCEDURE DATE: 01/15/2025 PREOPERATIVE DIAGNOSIS: GERD POSTOPERATIVE DIAGNOSIS: ?Same as above. 1) small to moderate diaphragmatic hernia, 2) duodenal ulcers PROCEDURE: Fbnumsoy-adxraw-kwdtrqqysnwj with biopsies Surgeon: ?David Nick M.D.. Ph.D. Chemical Reclamation Equipment Operator: None ? Anesthesia: IV sedation Estimated blood loss: ?Minimal FINDINGS AND PROCEDURE: ? OPERATIVE INDICATIONS: ?The patient is a 39 year old male known to me who is interested in bariatric surgery. The patient has GERD. Based on this information I recommended an upper endoscopy to evaluate the patient's symptoms. Risks and complications of the surgery were discussed with the patient in advance particularly the possibility of perforation or bleeding that may require surgical intervention. The patient understood the risks and was in agreement with the plan. ? PROCEDURE: After informed consent was obtained by the patient, the patient was ?transferred to the Operating Room and was placed in the supine position.? After successful induction of IV sedation, a mouth block was inserted and the patient was placed in the left lateral decubitus position. An upper endoscopy was performed next, the oropharynx and esophagus appeared within the normal limits. There was a small to moderate 3cm hiatal hernia. The z-line was smooth. Two biopsies were obtained from the distal esophagus 2-3 cm proximal to the GE junction and two additional biopsies from the GE junction. The stomach was entered and it appeared to be of normal size. There was no gastritis. There was no stricture or ulcer. A biopsy was obtained from the gastric fundus and antrum. No significant bleeding was noted from any of the biopsy sites. Retroflexion of the scope confirmed the presence of a diaphragmatic hernia. The scope was then advanced into the duodenum. There were a few superficial duodenal ulcers at the 1st and 2nd portion due to probably Meloxicam use. At that point the duodenum ?and the stomach were decompressed and the scope was withdrawn from the patient's mouth. The patient extubated and was transferred in stable condition to the Recovery Room for further care. I was present and performed all steps of the procedure. There were no residents to assist with this case. David Nick M.D., Ph.D. Surgeon: Sesar Nick MD Anesthesia: MAC Was an Chemical Reclamation Equipment Operator used for this Procedure?: No Estimated blood loss (mL): 0 IV fluids (mL): 400 Urine output (mL): 0 (No Malik to record output) Pathology: other (1) antrum x1, 2) fundus x1, 3) GE junction x2, 4) distal esophagus x2) Condition: stable Disposition: PACU
--- NOTE | 2025-01-15 12:33 | MHC.SHP ---
Pre-Procedural Eval Section A - 24 Hr Update-Section A only Date of Service: 01/15/25 The patient is an INPATIENT: No The patient has been examined within 24 hours of the surgical procedure. The History & Physical has been completed within 30 days and I have reviewed it.: Yes Section B - Complete if H&P > 30 days Chief Complaint: Morbid (severe) obesity due to excess calories Relevant Family History (Specify if Yes): No Relevant Social History: None Present Medications: None Medical History: No relevant PMH History of Previous Operations: No relevant previous surgery Allergies: Allergies Allergy/AdvReac Type Severity Reaction Status Date / Time No Known Allergies (No Known Allergy Verified 12/09/24 11:11 Allergies*) Review of Systems Sugical H&P ROS: Negative: Constitution, Cardiovascular, Respiratory, Neurological, Psychiatric, Hem-Onc, Allergic/Immunologic, Gastrointestinal, Genitourinary, Musculoskeletal, Integumentary, Endocrine and Eyes/Ears/Nose/Throat Exam Surgical H&P Exam: Normal: HEENT, Normal: Heart, Normal: Lungs, Normal: Extremities, Normal: Abdomen, Normal: Skin and Normal: Neurological Plan Diagnosis/Plan: Unchanged (EGD to assess etiology of GERD. Risks of bleeding and perforation were discussed with the patient and he is in agreement with the plan.) I have reviewed the history and physical and performed a pertinent physical examination on my patient. No changes have occurred unless specified. Time Spent With Patient Time: Total time managing care of this patient today ____ minutes.
[2025-01-15 13:30] VITALS: BP 127/69; PULSE 71; RESP 18; TEMP 37.7; O2SAT 100
[2025-01-15 13:45] VITALS: BP 113/66; PULSE 71; RESP 18; TEMP 36.9; O2SAT 98
== END 2025-01-15 14:41 | disposition home or self-care (01) ==
PROVIDERS: PCP Nurse Practitioner Family; Visit Provider Surgery
PROC: 0DJ08ZZ Inspection of Upper Intestinal Tract, Via Natural or Artificial Opening Endoscopic (ICD-10-PCS; CPT 43235; principal; 2025-01-15 13:10)
DX: K21.9 Gastro-esophageal reflux disease without esophagitis (principal); E66.01 Morbid (severe) obesity due to excess calories; Z68.42 Body mass index [BMI] 45.0-49.9, adult; K26.9 Duodenal ulcer, unspecified as acute or chronic, without hemorrhage or perforation; K44.9 Diaphragmatic hernia without obstruction or gangrene; I10 Essential (primary) hypertension; K29.50 Unspecified chronic gastritis without bleeding; I35.0 Nonrheumatic aortic (valve) stenosis; J45.909 Unspecified asthma, uncomplicated; Z79.899 Other long term (current) drug therapy
CPT/HCPCS: 43239; 88305; 88313; 88342; J2003; J2250; J2704

== ENCOUNTER → 2025-01-15 10:41 | Outpatient (BNV) | payer OTHER, SELFPAY | PROVIDERS: PCP Nurse Practitioner Family; Visit Provider Surgery | DX: K21.9 Gastro-esophageal reflux disease without esophagitis (principal); K44.9 Diaphragmatic hernia without obstruction or gangrene | CPT/HCPCS: 43239 ==

== ENCOUNTER 2025-01-16 13:37 | Outpatient (AMB) | payer OTHER, SELFPAY ==
--- OUTSIDE RECORDS SUMMARY | 2025-01-16 14:02 | XMS_ITS | Clinical Summary ---
Author Organization [address] [place] [address] [place] [phone] Phone Care Team Providers Care Rn Case Management Name Role Phone Thomas Farmer MD Primary Care Provider [phone] Allergies Active Allergy Reactions Criticality Noted Date [...] EDT Office Visit Plastic & Reconstructive Surgery [address] [phone] Nhi Alaniz PA Lipoma of face (Primary Dx) 12/05/2024 1:00 PM EDT Procedure visit Plastic & Reconstructive Surgery [address] [address] Greg Ugarte DO Disorder of soft tissue (Primary Dx) 11/21/2024 1:30 PM EDT Consult Plastic & Reconstructive Surgery [address] [address] Jimmy Dunn PA Disorder of soft tissue [...] kg (299 lb 12.8 oz) 11/21/2024 1:07 PM EDT Height 172.7 cm (5' 8 ) [...] 04/11/2022 Hypertension/CHF/CAD Annual BMP Blood Test 04/28/2022 Depression Screening 05/14/2024 COVID-19 Vaccine (4 - 2024- season) 2025 07/24/2021, 01/27/2021, 01/06/2021 Influenza Vaccine (#1) 2025 , 03/05/2023, 03/12/2022, [...] forehead-excision : -LIPOMA 12/08/2024 10:35 AM EDT [facility] Clinical Information Disorder of soft tissue M79.9 12/08/2024 10:35 AM EDT [facility] Gross Description A. Forehead, excision [...] de la torre-white to yellow fibroadipose tissue. Truss Builder sections of both tissues are submitted one cassette, three pieces. BG 12/08/2024 10:35 AM EDT [facility] Disclaimer Unless otherwise specified, all tissue is 10% NB formalin fixed and paraffin embedded. 12/08/2024 10:35 AM EDT [facility] Tissue Forehead structure / Unknown Non-blood Collection / Unknown 12/05/2024 1:58 PM EDT 12/05/2024 1:58 PM EDT us Greg Ugarte DO LAB PATHOLOGY ORDERABLES Fin al Result [facility] [address] [place] [address], from Last 3 Months Insurance [facility] Care Teams Rn Case Management Relationship Specialty Start Date End Date Thomas Farmer MD [address] [place] [phone] PCP - General Internal Medicine 10/15/24
--- OUTSIDE RECORDS SUMMARY | 2025-01-16 14:02 | XMS_ITS | Clinical Summary ---
Author Organization [facility] Address [address] [place] [address] Care Team Providers Care Director Of Strategic Initiatives Name Role Phone Unavailable Primary Care Provider [...]
--- NOTE | 2025-01-16 14:05 | A.OFFWM_ITS ---
Intake Intake Visit Reasons: OV BH Intake Allergies No Known Allergies (No Known Allergies*) Allergy (Verified 12/09/24 11:11) PFSH Medical History (Updated 01/15/25 @ 13:38 by Sesar Nick MD) History of herniated intervertebral disc Asthma DJD (degenerative joint disease) GERD (gastroesophageal reflux disease) Aortic stenosis Hypertension Morbid obesity Surgical History (Updated 01/15/25 @ 11:31 by Iliana Hansen RN) Hx of colonoscopy History of esophagogastroduodenoscopy (EGD) History of back surgery Family History (Updated 11/19/24 @ 14:58 by Krystina Bowers CMA) Mother Hypertension Heart problem Father Diabetes type 2 Hypertension Sleep apnea Daughter No problems noted. Daughter No problems noted. Social History (Updated 11/19/24 @ 14:58 by Krystina Bowers CMA) Do you presently have visiting nurse or other home services: No Alcohol intake: current Alcohol intake frequency: holidays/special occasions only Patient Tobacco Use Status: Never used Tobacco Behavioral Health Assessment Weight Management Therapy Therapy Notes Details The patient is a 39-year-old female/male presenting for a behavioral health assessment as part of a surgical weight loss program. The patient was initially referred to a weight loss program by their primary care provider; however, insurance did not provide coverage for that program. The patient subsequently learned about our program through friends and self-referred for evaluation. Presenting Concerns Referral Source WMP- Provider. Reason for referral Completion of behavioral health assessment as part of process for weight-loss surgery. Precipitating Event diagnosis of pre-diabetes when hit 300Lbs. Living Situation Current Living Situation Own At risk of losing current housing? No Satisfied with current living situation? Yes Comments PT lives with and 2 kids. Food/Weight/Diet Expectations of change PT started the program on 12/09 at 296Lbs and the initial goal was to lose 10% of his weight before surgery, which is about 30lbs. Ultima te weight goal: 270lbs before surgery PT reported a recent weight as of 01/14/25 was 266Lbs. Patient would like to adopt a healthier lifestyle, quality of life, and being able to maintain weight-loss in the long-term. PT is implementing the following: Current meal plan: combination of shakes, bars and 1 meal at day. Exercise plan: stationary bike and dancing classes. Tries to burn 300 td each time, 7 days at week. scale: yes Communication w/ provider: Wednesdays. History/Relationship with food The patient reports a longstanding pattern of consuming larger portion sizes, often characteristic of traditional - style meals, which frequently include multiple carbohydrate sources in a single meal. The patient acknowledges a tendency toward overeating, noting that this eating pattern was perceived as normal within their family and cultural context. History/Relationship with weight PT reports he has always been overweight. In the last 10 years, the patient's Lowest weight was 230Lbs and highest 303Lbs History/Relationship with dieting Self-diets Wegovy in 2023 for a short period of time. Binge Eating Do you frequently eat large amounts of food in short periods of time, not feeling physically hungry? Yes Do you feel out of control when you eat a large amount of food in a short period of time? No Do you eat large amounts of food rapidly and typically alone? No Night Eating Do you wake up at least once during the night to eat? No If you wake up in the night, do you find that it is necessary to eat something in order to fall back asleep? No Do you have little or no appetite in the morning and feel very hungry in the evening, often overeating between dinner and when you go to bed? No Social History Family history and relationship 8 years ago, they have 2 kids, they are 9 and 15 y/o (step-daughter). Parents are alive and live in [place], he has 2 sisters who live in the area. Good family relationships. 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 Developmental history and status No unknown issues. Currently WNL. Social support , kids, parents, a close friend. Community support None Jehovah'S Witness/Spirituality Raised as Voodoo but doesn't practice. Cultural/Ethnic information PT was born in [place], grew up in between [place] and [place] Legal Involvement and History Current or historical involvement with the legal system? None. Education Highest grade completed HS, 1 year of college. Preferred learning style Auditory, Verbal, Written, Learn by doing and Visual Currently enrolled in educational program? Yes Interested in further educational program? Yes Educational Interests/Skills Attending [employer] full-time Enrolled in the pre-req for the radiology/sonogram program. 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 No Meaningful activities Family activities, videogames. Financial Situation Describe current financial situation Comfortable Financial assistance? None Service Service? No Mental Health and Addiction Treatment Current/Past substance abuse? No Comments Alcohol: None. Cigarettes/Tobacco: None. Cannabis/Edibles: None. Current/Past addictive behavior concerns? No Psychiatric history PT currently attends counseling at [facility] every week via Telehealth, he receives family therapy to support daughter's behavrioal issues and individual to get support dealing with it. Family services started 3 weeks ago, and individual services since November. Denies any MH diagnosis, in crisis or inpatient for MH. Medical and Physical Health Summary Additional Medical History not covered in history None aditional Sexual History concerns None reported Physical exam in the last year? Yes Pain Screening Current pain? No Pain in the last few months? Yes (due to back issues) Medications Is the patient compliant with medications? Yes Does the patient have Adler Guardian in place? Not applicable Does the patient use complimentary health approaches? No Trauma/Abuse History History of trauma? No Questionnaires PHQ-9 Over the last 2 weeks, how often have you been bothered by any of the following problems? 1. Little interest or pleasure in doing things: not at all 2. Feeling down, depressed, or hopeless: not at all 3. Trouble falling or staying asleep, or sleeping too much: not at all 4. Feeling tired or having little energy: not at all 5. Poor appetite or overeating: not at all 6. Feeling bad about yourself - or that you are a failure or have let yourself or your family down: not at all 7. Trouble concentrating on things, such as reading the newspaper or watching television: not at all 8. Moving or speaking so slowly that other people could have noticed. Or the opposite - being so fidgety or restless that you have been moving around a lot more than usual: not at all 9. Thoughts that you would be better off or of hurting yourself in some way: not at all Total score: 0 Depression Screening Interpretation: Negative Depression Screening Done: Yes 97854 - PHQ-9 Billing: Yes Source: Developed by Drs. Salomon Hercules, Iman Mclaughlin, Rudy Webster and colleagues, with an educational gregoria from [employer]. Binge Eating Scale Group 1 A. I don't feel self-conscious about my wt. or body size when I'm with others. B. I feel concerned about how I look to others, but it normally does not make me fell disappointed with myself C. I do get self-conscious about my appearance and wt. which makes me feel disap pointed in myself. D. I feel very self-conscious about my wt. and frequently I feel intense shame and disgust for myself. I try to avoid social contacts because of my self-con sciousness. Response Group 1: C Group 2 A. I don't have any difficulty eating slowly in the proper manner. B. Although I seem to gobble down foods, I don't end up feeling stuffed because of eating to much. C. At times, I tend to eat quickly and then, I feel uncomfortably full afterwards. D. I have the habit of bolting down my food, without really chewing it. When this happens I usually feel uncomfortably stuffed because I've eaten to much. Response Group 2: A Group 3 A. I feel capable to control my eating urges when I want to. B. I feel like I have failed to control my eating more than the average person. C. I feel utterly helpless when it comes to feeling in control of my eating urges. D. Because I feel so helpless about controlling my eating I have become very desperate about trying to get control. Response Group 3: A Group 4 A. I don't have the habit of eating when I'm bored. B. I sometimes eat when I'm bored, but often I'm able to get busy and get my mind off food. C. I have a regular habit of eating when I'm bored, but occasionally, I can use some other activity to get my mind off eating. D. I have a strong habit of eating when I'm bored. Nothing seems to help me breath the habit. Response Group 4: B Group 5 A. I'm usually physically hungry when I eat something. B. Occasionally, I eat something on impulse even though I really am not hungry. C. I have the regular habit of eating foods, that I might not really enjoy, to satisfy a hungry feeling even though physically, I don't need the food. D. Although I'm not physically hungry, I get a hungry feeling in my mouth that only seems to be satisfied when I eat a food, like sandwich, that fills my mouth. Sometimes, when I eat the food to satisfy my mouth hunger, I then spit the food out so I won't gain weight. Response Group 5: B Group 6 A. I don't feel any guilt or self-hate after I overeat. B. After I overeat, occasionally I feel guilt or self-hate. C. Almost all the time I experience strong guilt or self-hate after I overeat. Response Group 6: B Group 7 A. I don't lose total control of my eating when dieting even after periods when I overeat. B. Sometimes when I eat a forbidden food on a diet, I feel like I blew it and eat even more. C. Frequently, I have the habit of saying to myself, I've blown it now, why not go all the way, when I overeat on a diet. When that happens I eat more. D. I have a regular habit of starting a strict diets for myself but I break the diets by going on an eating binge. My life seems to be either a feast or famine. Response Group 7: A Group 8 A. I rarely eat so much food that I feel uncomfortably stuffed afterwards. B. Usually about once a month, I each such a quantity of food, I end up feeling very stuffed. C. I have regular periods during the month when I eat large amounts of food, either at mealtime or at snacks. D. I eat so much food that I regularly feel quite uncomfortable after eating and sometimes a bit nauseous. Response Group 8: A Group 9 A. My level of calorie intake does not go up very high or go down very low on a regular basis. B. Sometimes after I overeat, I will try to reduce my caloric intake to almost nothing to compensate for the excess calories I've eaten. C. I have a regular habit of overeating during the night. It seems that my routine is not to be hungry in the morning but overeat in the evening. D. In my adult years, I have had week-long periods where I practically starve myself. This follows periods when I overeat. It seems I live a life of either feast or famine. Response Group 9: B Group 10 A. I usually am able to stop eating when I want to. I know when enough is enough. B. Every so often, I experience a compulsion to eat which I can't seem to control. C. Frequently, I experience strong urges to eat which I seem unable to control, but at other times I can control my eating urges. D. I feel incapable of controlling urges to eat. I have a fear of not being able to stop eating voluntarily. Response Group 10: A Group 11 A. I don't have any problem stopping eating when I feel full. B. I usually can stop eating when I feel full but occasionally overeat leaving me feeling uncomfortably stuffed. C. I have a problem stopping eating once I start and usually I feel uncomfortably stuffed after I eat a meal. D. Because I have a problem not being able to stop eating when I want, I sometimes have to induce vomiting to relieve my stuffed feeling. Response Group 11: B Group 12 A. I seem to eat just as much when I'm with others, Family social gatherings as when I'm by myself. B. Sometimes, when I'm with other persons, I don't eat as much as I want to eat because I'm self-conscious about my eating. C. Frequently, I eat only a small amount of food when others are present, because I'm very embarrassed about my eating. D. I feel so ashamed about overeating that I pick times to overeat when I know no one will see me. I feel like a closet eater. Response Group 12: A Group 13 A. I eat three meals a day with only an occasional between meal snack. B. I eat 3 meals a day, but I also normally snack between meals. C. When I am snacking heavily, I get in the habit of skipping regular meals. D. There are regular periods when I seem to be continually eating, with no planned meals. Response Group 13: A Group 14 A. I don't think much about trying to control unwanted eating urges. B. At least some of the time, I feel my thoughts are pre-occupied with trying to control my eating urges. C. I feel that frequently I spend much time thinking about how much I ate or about trying not to eat anymore. D. It seems to me that most of my waking hours are pre-occupied by thoughts about eating or not eating. I feel like I'm constantly struggling not to eat. Response Group 14: A Group 15 A. I don't think about food a great deal. B. I have strong craving for food but they last only for brief periods of time. C. I have days when I can't seem to think about anything else but food. D. Most of my days seem to be pre-occupied with thoughts about food. I feel like I live to eat. Response Group 15: A Group 16 A. I usually know whether or not I'm physically hungry. I take the right portion of food to satisfy me. B. Occasionally, I feel uncertain about knowing whether or not I'm physically hungry. A these times it's hard to know how much food I should take to satisfy me. C. Even though I might know how many calories I should eat, I don't have any idea what is a normal amount of food for me. Response Group 16: B Binge Eating Score: 8 Score less than 17 Minimal Risk Score between 18-26 Moderate Risk Score between 27-46 High Risk Assessment & Plan Assessment & Plan (1) Adjustment disorder: Code(s): F43.20 - Adjustment disorder, unspecified Qualifiers: Adjustment disorder type: unspecified type Qualified Code(s): F43.20 - Adjustment disorder, unspecified (2) Pre-bariatric surgery psychological evaluation: Code(s): Z71.89 - Other specified counseling Plan Following completion of the assessment?including review of the Binge Eating Scale, PHQ-9 scores, mental status evaluation, and patient self-report?there are no current behavioral health risks or concerns that would preclude proceeding with bariatric surgery. The patient is cleared from a behavioral health perspective and may be submitted for insurance approval when appropriate. A follow-up behavioral health visit will be scheduled 1?4 weeks postoperatively to assess psychological adjustment and screen for any emerging concerns. Next appointment:?1?4 weeks post-op. Coding Level of Care Code New Pt Psy Diag Shonna (46684) Patient Type New Diagnoses Adjustment disorder, unspecified type F43.20 Adjustment disorder type: unspecified type Pre-bariatric surgery psychological evaluation Z71.89 Additional Codes PHQ-9 - 12676 - PHQ-9 Billing: Yes ([id number]) Time Spent (min) 75
== END 2025-01-16 15:11 | disposition home or self-care (01) ==
LOC: HO.HBST 13:38
PROVIDERS: PCP Nurse Practitioner Family; Visit Provider Counselor Mental Health
DX: F43.20 Adjustment disorder, unspecified (principal); Z71.89 Other specified counseling
CPT/HCPCS: 90791

== ENCOUNTER → 2025-01-16 13:37 | Outpatient (BNVA) | payer OTHER, SELFPAY | PROVIDERS: PCP Nurse Practitioner Family; Visit Provider Counselor Mental Health | DX: F43.20 Adjustment disorder, unspecified (principal); Z71.89 Other specified counseling; Z13.89 Encounter for screening for other disorder ==

== ENCOUNTER 2025-02-06 10:29 | Outpatient (REF) | payer OTHER, SELFPAY ==
--- NOTE | ~2025-02-06 | US_ITS ---
EXAMINATION: US ABDOMEN COMPLETE WITH LIVER ELASTOGRAPHY HISTORY: E66.01 - Morbid (severe) obesity due to excess calories TECHNIQUE: Real-time grayscale ultrasound imaging of the abdomen was performed and images were reviewed. COMPARISON: There are no prior studies available for comparison. FINDINGS: Liver: The right lobe of the liver measures 17.4 cm in size. The left lobe of the liver measures 10.2 cm in size. The liver demonstrates increased echotexture, consistent with steatosis. No focal mass or intrahepatic biliary ductal dilatation is identified. There is normal hepatopedal flow in the portal vein. Ultrasound elastography of the liver was performed with 10 separate measurements of the liver parenchyma with the patient in the supine position. Measurements were obtained approximately 2 cm below Alissa's capsule and perpendicular to the capsule. The median shear wave velocity is 1.46 m/s. The interquartile range/median (IQR/median) is 0.06. Gallbladder and biliary tree: The gallbladder is unremarkable, without evidence of calculi, wall thickening, or pericholecystic fluid. There is no sonographic Mirza sign. The common bile duct is normal in caliber measuring 5 mm. Kidneys: The right kidney measures 12.1 cm in length and demonstrates an extrarenal pelvis. The left kidney measures 12.1 cm in length and demonstrates an extrarenal pelvis. The kidneys are unremarkable, without evidence of masses, hydronephrosis, or calculi. Pancreas: The pancreatic head, neck, and body are unremarkable. The pancreatic tail is obscured by bowel gas. Spleen: The spleen is normal in size and contour, measuring 10.9 cm in length. Abdominal aorta and inferior vena cava: The visualized portions of the abdominal aorta and inferior vena cava are normal in caliber. There is no free fluid in the abdomen. US/US abdomen comp w elastography IMPRESSION: Hepatomegaly and hepatic steatosis. The median shear wave velocity in the liver is 1.46 m/s, corresponding to a median liver stiffness of 6.52 kPa. The IQR/median value is 0.06. This is indicative of a quality data set. Findings are indicative of a low elastography value which rules out advanced chronic liver disease in asymptomatic patients. REFERENCE: Society of Radiologists in Ultrasound Liver Stiffness Thresholds (2020): LIVER STIFFNESS THRESHOLDS: *Shear wave velocity less than 1.3 m/s (Liver Stiffness equal or less than 5 kPa): High probability of being normal. *Shear wave velocity less than 1.7 m/s (Liver Stiffness less than 9 kPa): In the absence of other known clinical signs, rules out compensated advanced chronic liver disease. *Shear wave velocity between 1.7-2.1 m/s (Liver Stiffness 9-13 kPa): Suggestive of compensated advanced chronic liver disease but need further test for confirmation. *Shear wave velocity between 2.1-2.4 m/s (Liver Stiffness 13-17 kPa): Rules in compensated advanced chronic liver disease. *Shear wave velocity greater than 2.4 m/s (Liver Stiffness over 17 kPa): Suggestive of clinically significant portal hypertension. QUALITY OF DATA SET: *IQR/Median value equal or less than 0.15 implies a quality data set. *IQR/Median value over 0.15 implies a poor quality data set. SIGNIFICANT CHANGE FROM PRIOR EXAM: Significant change if liver stiffness measurement is 10% or greater from prior exam. OTHER CONSIDERATIONS: The stage of liver fibrosis may be overestimated in the setting of acute hepatitis, liver inflammation, elevated liver function tests, hepatic vascular congestion, obstructive cholestasis, non-fasting state, and infiltrative diseases such as amyloidosis and lymphoma. In some patients with NAFLD, the liver stiffness thresholds for compensated advanced chronic liver disease may be lower. In causes other than viral hepatitis and NAFLD, liver stiffness thresholds are not well established. Electronically signed by: Salomon Whittaker MD 02/06/2025 11:07 AM EDT
--- OUTSIDE RECORDS SUMMARY | 2025-02-06 11:55 | XMS_ITS | Clinical Summary ---
Author Organization [address] [place] [address] [place] [phone] Phone Care Team Providers Care Instructional Services Librarian Name Role Phone Thomas Farmer MD Primary Care Provider [phone] Allergies Active Allergy Reactions Criticality Noted Date [...] EDT Office Visit Plastic & Reconstructive Surgery [address] [phone] Nhi Alaniz PA Lipoma of face (Primary Dx) 12/05/2024 1:00 PM EDT Procedure visit Plastic & Reconstructive Surgery [address] [phone] Greg Ugarte DO Disorder of soft tissue (Primary Dx) 11/21/2024 1:30 PM EDT Consult Plastic & Reconstructive Surgery [address] [phone] Jimmy Dunn PA Disorder of soft tissue [...] forehead-excision : -LIPOMA 12/08/2024 10:35 AM EDT [facility] Clinical Information Disorder of soft tissue M79.9 12/08/2024 10:35 AM EDT [facility] Gross Description A. Forehead, [...] de la torre-white to yellow fibroadipose tissue. Night Worker sections of both tissues are submitted one cassette, three pieces. BG 12/08/2024 10:35 AM EDT [facility] Disclaimer Unless otherwise specified, all tissue is 10% NB formalin fixed and paraffin embedded. 12/08/2024 10:35 AM EDT [facility] Tissue Forehead structure / Unknown Non-blood Collection / Unknown 12/05/2024 1:58 PM EDT 12/05/2024 1:58 PM EDT us Greg Ugarte DO LAB PATHOLOGY ORDERABLES Fin al Result [facility] [address] [place] [address], from Last 3 Months Insurance [facility] Care Teams Instructional Services Librarian Relationship Specialty Start Date End Date Thomas Farmer MD [address] [place] [phone] PCP - General Internal Medicine 10/15/24
== END 2025-02-06 10:30 | disposition home or self-care (01) ==
LOC: HO.US 10:29
PROVIDERS: PCP Nurse Practitioner Family; Visit Provider Surgery
DX: E66.01 Morbid (severe) obesity due to excess calories (principal); K21.9 Gastro-esophageal reflux disease without esophagitis; I10 Essential (primary) hypertension
CPT/HCPCS: 76700; 76981

== ENCOUNTER → 2025-02-06 10:30 | Outpatient (BNV) | payer OTHER, SELFPAY | PROVIDERS: PCP Nurse Practitioner Family; Visit Provider Radiology Diagnostic Radiology | DX: R16.0 Hepatomegaly, not elsewhere classified (principal); K76.0 Fatty (change of) liver, not elsewhere classified | CPT/HCPCS: 76700 ==

== ENCOUNTER 2025-02-09 08:16 | Outpatient (AMB) | payer OTHER, SELFPAY ==
[2025-02-08 22:20] VITALS: BMI 38.9
--- NOTE | 2025-02-08 22:20 | MHC.OFFVISWM ---
VS Expanded 02/08/25 22:20 Height 5 ft 8 in Weight 256 lb 1 oz BMI 38.9 Body Fat % 38.4 Body Fat Mass 98.3 Fat Free Mass 157.8 Visceral Fat Rating 19.3 Body Water % 44.1 Body Water Mass 112.9 Basal Metabolic Rate/Score 2,100 Intake Visit Reasons: TV Pre Op LSG 02/17/25 Allergies No Known Allergies (No Known Allergies*) Allergy (Verified 02/08/25 22:27) Medication List - Last Reconciled 02/08/25 by Sesar Nick MD allopurinol 100 mg PO DAILY amlodipine-benazepril 2.5-10 mg 1 cap PO DAILY chlorthalidone 25 mg PO DAILY diltiazem HCl ER (Tiazac) 240 mg PO DAILY lisinopril 40 mg PO DAILY mecobalamin (vitamin B12) 1,000 mcg sublingual DAILY meloxicam 15 mg PO DAILY ondansetron 4 mg PO Q12H pantoprazole 40 mg PO DAILY pantoprazole 40 mg PO DAILY polyethylene glycol 3350 17 grams PO DAILY sucralfate 10 mL PO BID HPI HPI TV Pre Op LSG 02/17/25: Details: Start time: 8.24am, End time: 8.54am ?I spent 25 minutes speaking with the patient on the phone plus an additional 5 minutes reviewing and updating records for a total of 30 minutes HPI Comments Details: Overall weight loss: 40.8lbs, or 13.78% TBWL Is doing 2 premade Premier shakes (8oz each), 2 Fit Crunch protein bars and one meal (10 forks each) Exericse: walking outside [facility] Medical History (Updated 02/08/25 @ 22:30 by Sesar Nick MD) BMI 38.0-38.9,adult Obesity History of herniated intervertebral disc Asthma DJD (degenerative joint disease) GERD (gastroesophageal reflux disease) Aortic stenosis Hypertension Morbid obesity Surgical History (Updated 01/15/25 @ 11:31 by Iliana Hansen RN) Hx of colonoscopy History of esophagogastroduodenoscopy (EGD) History of back surgery Family History (Updated 11/19/24 @ 14:58 by Krystina Bowers CMA) Mother Hypertension Heart problem Father Diabetes type 2 Hypertension Sleep apnea Daughter No problems noted. Daughter No problems noted. Social History (Updated 11/19/24 @ 14:58 by Krystina Bowers CMA) Do you presently have visiting nurse or other home services: No Alcohol intake: current Alcohol intake frequency: holidays/special occasions only Patient Tobacco Use Status: Never used Tobacco Physical Exam Vital Signs: BMI result Body Mass Index 38.9 Telehealth Telehealth Telehealth Platform: Telephone Location of provider rendering services: practice address Location of patient: address on file Patient Identification confirmed using: Name, : Yes Telehealth method: voice only Patient verbally consented to treatment: Yes Patient verbally consented to billing insurance company: Yes Patient informed of any privacy concerns related to visit: Yes Minutes spent on Phone/Video with Pt.: 30 Assessment & Plan Assessment & Plan (1) Obesity: Code(s): E66.9 - Obesity, unspecified Category: Medical Qualifiers: Body mass index: BMI 38.0-38.9 Obesity classification: adult class 2 (BMI 35 - 39.9) Obesity type: due to excess calories Serious obesity comorbidity presence: with serious comorbidity Qualified Code(s): E66.812 - Obesity, class 2; E66.01 - Morbid (severe) obesity due to excess calories; Z68.38 - Body mass index [BMI] 38.0-38.9, adult Plan: 1.? Plan for lap sleeve gastrectomy including upper GI endoscopy. All tests has been completed and reviewed and the patient is cleared for the surgery. ?If diaphragmatic or ventral hernias are present at time of surgery, these will be repaired laparoscopically as well. The surgery does not replace the need to change your lifestlyle which is the cause of the obesity problem. The surgery provides the motivation to try again to change your lifestyle, it reduces the appetite and make the transition to a better lifestyle easier and doubles the amount of weight you would lose compared to doing the lifestyle change without the surgery. You will need to be on a liquid diet with protein shakes for 2 weeks before surgery to maximize weight loss and boost your nutritional status to recover better from surgery and also for the first two weeks after surgery to let the stomach heal before we introduce other foods. After the first 2 weeks we will introduce protein bars and soft foods like scrambled eggs, cottage cheese and yogurt and after the 6th week will introduce meat, fish and cooked vegetables in small amounts. Over time you should be able to eat everything in small amounts. Side effects like nausea, vomiting, heartburn or abdominal pain are not common in the practice unless you are not following in the practice. This operation requires lifetime commitment to following in our practice and communication with me. You will much less weight and experience side effects if you don?t communicate or not following in the practice. Complications are rare and in our practice is about 1/10 of the national average. However, you can develop bleeding that may require transfusion (hasn?t happened for year in the practice), you may from complications (we did not have any deaths in the practice) and infections. Infections are usually a result of breakdown in communication or not understanding or following directions correctly. They are difficult to treat, they can happen during the first 6 weeks, they may require to be in the hospital for weeks or even months, not being able to eat by mouth and you may have drains and surgeries to try and correct the issue. Other risks and complications include possible conversion to an open procedure, leaks, small bowel obstruction, blood clots, cardiac, or pulmonary complications, as [facility] complications such as ulcers, insufficient weight loss and vitamin deficiencies. So far he has proven to be an excellent communicator and very compliant with all our directions accomplishing a great weight loss. I believe that he is an excellent candidate and he is ready. 2. Preop prescriptions were provided and explained the purpose of each one. Need to be purchased preop. Start Pantoprazole now as you get it from the pharmacy, 1 pill per day. Sucralfate and Zofran are for after surgery as needed. 3. Bowel prep: please do 7 packets ?of Miralax mixing each one with a an 8oz glass of water, crystal light, gatorade zero, or propel ?on 02/15/25 and the same amount on 02/16/25. The Miralax you begin with one packet at a time in 8oz water or crystal light, gatorade zero, or propel ?as early in the day as you can and you do them back to back until you finish them. Continue the protein shakes during? the bowel prep. 4. Needs to purchase 1oz medicine cups . 5. Needs to purchase Children's liquid Tylenol for postop pain control. 6. He needs to stop the Meloxicam as of today 02/09/25. Avoid aspirin, motrin, Advil, Aleve, Ibuprofen, Naproxyn. Tylenol is OK. 7. He needs to purchase the Celebrate multivitamins from the hospital's gift shop. 8. Will do basic preop blood work-up any day between Sunday02/09/25 and Sunday02/13/25 fasting for 12 hours and is scheduled to see the Anesthesiologist prior to the day of surgery. 10. Importance of adherence to postop follow-up and recommendations was underscored and he understands that. 11. Stop food and bars as of Sunday02/10/25 and continue with 2 PREMIER protein shakes (4oz of PREMIER mixed WITH 4oz almond milk EACH) at 4am-6am and 7am-9am, and 4 more PREMIER protein shakes (8oz of Premier and NOT the whole bottle) at 10am-12pm, 1pm-3pm, 4pm-6pm 7pm-9pm 12. No soups, broths or V8 13. The patient's?medical?history has been reviewed and they are considered low risk for post op DVT and therefore DVT prophylaxis is not considered necessary. Travel after surgery was reviewed. The patient has not disclosed any travel plans during the first 30 days after surgery and they have been advised that within the first 30 days after surgery any bus, plane, train or car travel over 2 hours in duration is contraindicated due to the possibility of developing blood clots from immobility. Any travel, needs to include periods of ambulation of 10 minutes in duration every 2 hours.? Patient was instructed to discuss any plans for travel during this period with their bariatric surgeon.? 14. Use your CPAP daily and bring it to the hospital with your mask 14. As of tomorrow, please check your blood pressure daily in the morning. If your blood pressure is: Below 120/70: do not take the Diltiazem, Amlodipine, Chlorthalidone and Lisinopril 121/71 to 130/80: take the Diltiazem only 131/81 to 140/90: take the Amlodipine and Diltiazem 141/91 to 150/100: take the Amlodipine, Diltiazem and Chlorthalidone Over 151/91: take the Amlodipine, Diltiazem, Lisinopril and Chlorthalidone 15. Please take at the day of surgery the following medications: The Amlodipine, Lisinopril, Chlorthalidone and Diltiazem if the blood pressure reading that morning is high enough to justify based on the parameters above. 17. Absolutely no smoking or vaping, or marijuana until the surgery and for at least the first 4 weeks. Only nicotine patches are allowed. 18. Send me weight measurements on Sunday02/11/25 and then on Sunday02/17/25, the day of surgery before you go to the hospital. 19. Avoid any steroids by mouth for any reason. Let me know if someone prescribes them to you 20. These instructions supersede anything else you read in the handbook, anything you watched in videos or classes or you were told by any other provider. If there is any conflict, you follow the above instructions and nothing else. Orders: Orders Insulin 02/08/25 E66.9 - Obesity, unspecified, I10 - Essential (primary) hypertension, Z68.38 - Body mass index [BMI] 38.0-38.9, adult Complete Blood Count Auto Diff 02/08/25 E66.9 - Obesity, unspecified, I10 - Essential (primary) hypertension, Z68.38 - Body mass index [BMI] 38.0-38.9, adult Lipid Panel 02/08/25 E66.9 - Obesity, unspecified, I10 - Essential (primary) hypertension, Z68.38 - Body mass index [BMI] 38.0-38.9, adult Partial Thromboplastin Time 02/08/25 E66.9 - Obesity, unspecified, I10 - Essential (primary) hypertension, Z68.38 - Body mass index [BMI] 38.0-38.9, adult Prothrombin Time INR 02/08/25 E66.9 - Obesity, unspecified, I10 - Essential (primary) hypertension, Z68.38 - Body mass index [BMI] 38.0-38.9, adult C Reactive Protein 02/08/25 E66.9 - Obesity, unspecified, I10 - Essential (primary) hypertension, Z68.38 - Body mass index [BMI] 38.0-38.9, adult Hemoglobin A1c 02/08/25 E66.9 - Obesity, unspecified, I10 - Essential (primary) hypertension, Z68.38 - Body mass index [BMI] 38.0-38.9, adult Comprehensive Met. Panel 02/08/25 E66.9 - Obesity, unspecified, I10 - Essential (primary) hypertension, Z68.38 - Body mass index [BMI] 38.0-38.9, adult Type and Screen 02/08/25 E66.9 - Obesity, unspecified, I10 - Essential (primary) hypertension, Z68.38 - Body mass index [BMI] 38.0-38.9, adult TSH reflex Free T4 02/08/25 E66.9 - Obesity, unspecified, I10 - Essential (primary) hypertension, Z68.38 - Body mass index [BMI] 38.0-38.9, adult Medications: New pantoprazole 40 mg PO DAILY 90 tabs 0RF K21.9 - Gastro-esophageal reflux disease without esophagitis sucralfate 10 mL PO BID 600 mL 2RF K21.9 - Gastro-esophageal reflux disease without esophagitis ondansetron Only take one every 12 hours as needed if you have nausea 4 mg PO Q12H 20 tabs 0RF nausea and vomiting R11.0 - Nausea polyethylene glycol 3350 Mix each measuring cup with 8oz of water, Crystal light, or Gatorade zero, or Propel and do 7 measuring cups on 02/15/25 and another 7 measuring cups on 02/16/25 17 grams PO DAILY 238 grams 0RF Z01.818 - Encounter for other preprocedural examination
== END 2025-02-09 08:54 | disposition home or self-care (01) ==
LOC: HO.HBS 08:16
PROVIDERS: PCP Nurse Practitioner Family; Visit Provider Surgery
DX: E66.812 Obesity, class 2 (principal); E66.01 Morbid (severe) obesity due to excess calories; Z68.38 Body mass index [BMI] 38.0-38.9, adult
CPT/HCPCS: 99214

== ENCOUNTER 2025-02-17 05:52 | Day surgery (SDC) | payer OTHER, SELFPAY ==
--- OUTSIDE RECORDS SUMMARY | 2025-01-29 06:56 | XMS_ITS | Clinical Summary ---
Author Organization [address] [place] [address] [place] [phone] Phone Care Team Providers Care Marketing Strategist Name Role Phone Thomas Farmer MD Primary Care Provider [phone] Allergies Active Allergy Reactions Criticality Noted Date [...] EDT Office Visit Plastic & Reconstructive Surgery [address] [phone] Nhi Alaniz PA Lipoma of face (Primary Dx) 12/05/2024 1:00 PM EDT Procedure visit Plastic & Reconstructive Surgery [address] [phone] Greg Ugarte DO Disorder of soft tissue (Primary Dx) 11/21/2024 1:30 PM EDT Consult Plastic & Reconstructive Surgery [address] [phone] Jimmy Dunn PA Disorder of soft tissue [...] de la torre-white to yellow fibroadipose tissue. Engineering Laboratory Technician sections of both tissues are submitted one [...] DO LAB PATHOLOGY ORDERABLES Fin al Result [facility] [address] [place] [address], from Last 3 Months Insurance [facility] Care Teams Marketing Strategist Relationship Specialty Start Date End Date Thomas Farmer MD [address] [place] [phone] PCP - General Internal Medicine 10/15/24
--- OUTSIDE RECORDS SUMMARY | 2025-01-29 06:56 | XMS_ITS | Clinical Summary ---
Author Organization [facility] Address [address] [place] [address] Care Team Providers Care Medical Unit Secretary Name Role Phone Unavailable Primary Care Provider [...] 3-dose SCD M series) 2010 COVID-19 Vaccine ( - 2023-2 5 season) 2025 Pneumococcal Vaccine: Pediat goyo (0-5 Years) and At-Risk Patients (6 to 49 Years) Aged Out No longer eligible b ased on patient's age to complete this topic
[2025-02-10 11:22] VITALS: BMI 38.6
[2025-02-10 11:38] LABS: MANUAL DIFF FLAG NO
[2025-02-10 11:55] LABS: Hematocrit 42.6 % (42.0-52.0); Hemoglobin 13.7 g/dl (14.0-18.0); Imm Gran Abs Auto 0.05 X10*3/uL (0.00-0.03); Imm Gran Pct Auto 0.4 % (0.0-0.4); Lymphocytes Absolute Auto 2.8 X10*3/uL (1.2-4.9); Mean Corpuscular HGB Conc 32.2 g/dl (31.0-36.0); Mean Corpuscular Hemoglobin 26.4 pg (27.0-33.0); Mean Corpuscular Volume 82.2 fL (80.0-98.0); NRBC Abs Auto 0.000 X10*3/uL (0.0-0.012); NRBC Pct Auto 0.0 /100WBC (0.0-0.2); Platelet Count 262 X10*3/uL (160-400); Red Blood Count 5.18 X10*6/uL (4.60-5.80); White Blood Count 12.0 X10*3/uL (4.8-10.8)
[2025-02-10 12:07] LABS: INTERNATIONAL NORM RATIO 1.1 (0.9-1.1); Prothrombin Time 12.2 SEC (10.9-12.4)
[2025-02-10 12:09] LABS: Partial Thromboplastin Time 31.1 SEC (26.7-34.1)
[2025-02-10 12:26] LABS: Hemoglobin A1C 130.0553 umol/L; Total Hemoglobin (HGBA1C) 3558.2067 umol/L
[2025-02-10 12:48] LABS: Alanine Aminotransferase 28 U/L (0-40); Albumin Level 4.3 g/dL (3.5-5.0); Anion Gap 11 (12-20); Aspartate Amino Transferase 20 U/L (5-37); Blood Urea Nitrogen 10 mg/dL (9-16); Calcium 9.2 mg/dL (8.4-10.2); Carbon Dioxide 28 mmol/L (22-29); Chloride 104 mmol/L (96-108); Cholesterol 138 mg/dL (<200); Creatinine Clr Calc Pharmacy 166.3; Estimated Glomerular Filt Rate > 60; HDL Cholesterol 38 mg/dL (>40); Potassium 4.1 mmol/L (3.3-5.1); Sodium 139 mmol/L (135-145); Total Protein 7.0 g/dL (6.5-8.0); Triglycerides 64 mg/dL (<150)
[2025-02-10 12:58] LABS: Alkaline Phosphatase 44 U/L (39-117)
[2025-02-17] VITALS (11 sets, daily range): BP systolic 132–155; BP diastolic 44–93; PULSE 51–89; RESP 12–18; TEMP 36.1–36.9; O2SAT 93–100; BMI 40.4
[2025-02-17] MEDS: Lactated Ringers 1,000 ML 999 ML IV (06:47)
[2025-02-17] MEDS: Aprepitant 32 MG/4.4 ML VIAL IVPUSH (06:47)
--- NOTE | 2025-02-17 07:08 | HO.ANESPROP2 ---
Documented by User: Chrissy Lopez NP 02/13/25 10:43 HPI - Anesthesia Eval Consult details Narrative: 39yo M for Gastrectomy Sleeve,EGD,possible Diaphragmatic Hernia,possible Ventral Hernia,possible Open PMFSH Active Problems Active Problems: All Active Problems Duodenal ulcer (Acute) Vitamin B12 deficiency (Acute) BMI 38.0-38.9,adult (Acute) Obesity (Acute) Asthma (Acute) DJD (degenerative joint disease) (Acute) GERD (gastroesophageal reflux disease) (Acute) Aortic stenosis (Acute) Hypertension (Acute) Morbid obesity (Acute) Past Medical History Medical History Hx of hypokalemia MELANIA on CPAP Ascending aorta dilation Bicuspid aortic valve BMI 38.0-38.9,adult Obesity History of herniated intervertebral disc Asthma DJD (degenerative joint disease) GERD (gastroesophageal reflux disease) Aortic stenosis Hypertension Morbid obesity Family History Family History (Updated 11/19/24 @ 14:58 by Krystina Bowers CMA) Mother Hypertension Heart problem Father Diabetes type 2 Hypertension Sleep apnea Daughter No problems noted. Daughter No problems noted. Surgical History Surgical History Hx of colonoscopy History of esophagogastroduodenoscopy (EGD) (01/15/25) History of back surgery (~2019) Social History Social History Household Members: Spouse Housing: House Are you a primary healthcare applications analyst to a significant other at home: No Do you presently have visiting nurse or other home services: No Alcohol intake: current Alcohol intake frequency: does not drink Patient Tobacco Use Status: Never used Tobacco e-Cigarette/Vaping Use: Never Used Use of substances other than those prescribed or required for medical reasons: No Have you been hit, kicked, punched, or otherwise hurt by someone within the past year? If so, by whom?: No Are you DNR?: No Advance Directives: No Advance Directives Information Provided: Yes Advance Directives on File: No Poor oral hygiene: No Current occupational status: employed Meds Allergies Allergy/AdvReac Type Severity Reaction Status Date / Time spironolactone AdvReac hypokalemia, Verified 02/10/25 11:30 lump on chest Home Medications ?Medication ?Instructions ?Recorded ?Confirmed ?Last Taken ?Type allopurinol 100 mg tablet 100 mg PO DAILY 11/21/24 02/17/25 02/14/25 History amlodipine 2.5 mg-benazepril 10 mg 1 cap PO DAILY 11/21/24 02/17/25 01/18/25 History capsule chlorthalidone 25 mg tablet 25 mg PO DAILY 11/21/24 02/17/25 01/18/25 History diltiazem HCl 240 mg capsule,24 240 mg PO DAILY 11/21/24 02/17/25 02/14/25 History hr,extended release (Tiazac) lisinopril 40 mg tablet 40 mg PO DAILY 11/21/24 02/17/25 01/27/25 History meloxicam 15 mg tablet 15 mg PO DAILY 11/21/24 02/17/25 01/15/25 History Flovent HFA DAILY PRN Shortness Of Breath Or 02/10/25 Unknown History Wheezing albuterol sulfate PRN Shortness Of Breath Or Wheezing 02/10/25 02/10/25 Unknown History Exam Height,Weight and Vital Signs: Height 5 ft 8 in Weight 115.212 kg Pertinent Lab Results Pertinent Lab Results: Laboratory Tests 02/10/25 02/10/25 11:27 11:37 WBC 12.0 H RBC 5.18 Hgb 13.7 L Hct 42.6 MCV 82.2 MCH 26.4 L MCHC 32.2 RDW 14.6 Plt Count 262 MPV 10.6 Immature Gran % (Auto) 0.4 Neut % (Auto) 64.2 Lymph % (Auto) 23.5 Owen % (Auto) 10.0 Eos % (Auto) 1.6 Baso % (Auto) 0.3 Lymph # (Auto) 2.8 Owen # (Auto) 1.2 Eos # (Auto) 0.2 Baso # (Auto) 0.0 Abs Immat Gran (auto) 0.05 H Absolute Neuts (auto) 7.7 Absolute Nucleated RBC 0.000 Nucleated RBC % (auto) 0.0 PT 12.2 INR 1.1 APTT 31.1 Sodium 139 Potassium 4.1 D Chloride 104 Carbon Dioxide 28 Anion Gap 11 L BUN 10 Creatinine 0.72 Estim Creat Clear Calc 166.3 Estimated GFR > 60 Random Glucose 80 Estimat Average Glucose 111 Hemoglobin A1c % 5.5 Insulin Level 9 Calcium 9.2 Total Bilirubin 1.1 H AST 20 ALT 28 Alkaline Phosphatase 44 C-Reactive Protein 0.78 H Total Protein 7.0 Albumin 4.3 Triglycerides 64 Cholesterol 138 LDL Cholesterol, Calc 88 HDL Cholesterol 38 L TSH 1.19 Blood Type O Positive Antibody Screen NEGATIVE Narrative Narrative: EKG 12/2024 Vent. Rate : 62 BPM Atrial Rate : 62 BPM P-R Int : 154 ms QRS Dur : 94 ms QT Int : 440 ms P-R-T Axes : 29 -11 -6 degrees QTcB Int : 446 ms Normal sinus rhythm Normal ECG When compared with ECG of 11-Jun-2014 16:28, Vent. rate has decreased by 36 bpm ECHO 02/2024 Summary The left atrium is mildly dilated. The aortic valve is poorly visualized on the parasternal short axis view. It is likely bicuspid. The aortic valve appears mildly calcified. There is mild aortic stenosis with a peak gradient of 37 mmHg and a mean gradient of 19 mmHg. There is mild aortic regurgitation. There is mild dilation of the ascending aorta measuring 42 mm in the tubular section. The left ventricular size is normal. Left ventricular wall thickness is normal. The LV systolic function is normal . The left ventricular ejection fraction is 60-65 %. There are no regional wall motion abnormalities. Normal diastolic function. AV Area (Continuity):1.98 cm2 AV Mean Gradient: 19 mmHg AV Peak Gradient: 36.97 mmHg Assessment and Plan Assessment Anesthesia Assessment: Chart Reviewed Documented by User: Ciera Mary DO 02/17/25 07:10 [facility] Past Medical History Medical History Hx of hypokalemia MELANIA on CPAP Ascending aorta dilation Bicuspid aortic valve BMI 38.0-38.9,adult Obesity History of herniated intervertebral disc Asthma DJD (degenerative joint disease) GERD (gastroesophageal reflux disease) Aortic stenosis Hypertension Morbid obesity Family History Family History (Updated 11/19/24 @ 14:58 by Krystina Bowers CMA) Mother Hypertension Heart problem Father Diabetes type 2 Hypertension Sleep apnea Daughter No problems noted. Daughter No problems noted. Family history of problems with anesthesia: No Surgical History Surgical History Hx of colonoscopy History of esophagogastroduodenoscopy (EGD) (01/15/25) History of back surgery (~2019) History of Problems with Anesthesia: No Social History Social History Household Members: Spouse Housing: House Are you a primary healthcare applications analyst to a significant other at home: No Do you presently have visiting nurse or other home services: No Alcohol intake: current Alcohol intake frequency: does not drink Patient Tobacco Use Status: Never used Tobacco e-Cigarette/Vaping Use: Never Used Use of substances other than those prescribed or required for medical reasons: No Have you been hit, kicked, punched, or otherwise hurt by someone within the past year? If so, by whom?: No Are you DNR?: No Advance Directives: No Advance Directives Information Provided: Yes Advance Directives on File: No Poor oral hygiene: No Current occupational status: employed Meds Allergies Allergy/AdvReac Type Severity Reaction Status Date / Time spironolactone AdvReac hypokalemia, Verified 02/10/25 11:30 lump on chest Home Medications ?Medication ?Instructions ?Recorded ?Confirmed ?Last Taken ?Type allopurinol 100 mg tablet 100 mg PO DAILY 11/21/24 02/17/25 02/14/25 History amlodipine 2.5 mg-benazepril 10 mg 1 cap PO DAILY 11/21/24 02/17/25 01/18/25 History capsule chlorthalidone 25 mg tablet 25 mg PO DAILY 11/21/24 02/17/25 01/18/25 History diltiazem HCl 240 mg capsule,24 240 mg PO DAILY 11/21/24 02/17/25 02/14/25 History hr,extended release (Tiazac) lisinopril 40 mg tablet 40 mg PO DAILY 11/21/24 02/17/25 01/27/25 History meloxicam 15 mg tablet 15 mg PO DAILY 11/21/24 02/17/25 01/15/25 History Flovent HFA DAILY PRN Shortness Of Breath Or 02/10/25 Unknown History Wheezing albuterol sulfate PRN Shortness Of Breath Or Wheezing 02/10/25 02/10/25 Unknown History Exam Exam Date and Time: 02/17/25 0705 Height,Weight and Vital Signs: Height 5 ft 8 in Weight 115.212 kg Vital Signs Temperature 98.2 F 02/17/25 06:45 Pulse Rate 77 02/17/25 06:45 Respiratory Rate 16 02/17/25 06:45 Blood Pressure 148/88 H 02/17/25 06:45 Pulse Oximetry 98 02/17/25 06:45 Oxygen Delivery Method Room Air 02/17/25 06:45 Temperature 98.2 F 02/17/25 06:45 Pulse Rate 77 02/17/25 06:45 Respiratory Rate 16 02/17/25 06:45 Blood Pressure 148/88 H 02/17/25 06:45 Pulse Oximetry 98 02/17/25 06:45 Oxygen Delivery Method Room Air 02/17/25 06:45 Airway Mallampati Class: II TM Dist: <=3cm Neck ROM: Full Loose/Missing/Broken Teeth: No (patient denies any loose or broken teeth) Heart: S1S2 Lungs: CTAB Assessment and Plan Assessment Anesthesia Assessment: Anesthesia Plan Discussed and Chart Reviewed Final Anesthetic Review Family History of Problems with Anesthesia: No History of Problems with Anesthesia: No NPO: Yes ASA Class: III Final Preanesthetic Review: No Changes in Pt Med Stat, Meds/Allgs Chart Reviewed, Consent Obtained/Reviewed and Anes Risks/Benef Reviewed Patient Risk: Intermediate Procedure Risk: Intermediate Anesthetic Plan Anesthetic Plan: GA and Agree w/ Assess. and Plan Disposition: Standard PACU
--- NOTE | 2025-02-17 07:37 | MHC.SHP ---
Pre-Procedural Eval Section A - 24 Hr Update-Section A only Date of Service: 02/17/25 The patient is an INPATIENT: No The patient has been examined within 24 hours of the surgical procedure. The History & Physical has been completed within 30 days and I have reviewed it.: Yes Section B - Complete if H&P > 30 days Chief Complaint: Morbid (severe) obesity due to excess calories Relevant Family History (Specify if Yes): No Relevant Social History: None Present Medications: None Medical History: No relevant PMH History of Previous Operations: No relevant previous surgery Allergies: Allergies Allergy/AdvReac Type Severity Reaction Status Date / Time spironolactone AdvReac hypokalemia, Verified 02/10/25 11:30 lump on chest Review of Systems Sugical H&P ROS: Negative: Constitution, Cardiovascular, Respiratory, Neurological, Psychiatric, Hem-Onc, Allergic/Immunologic, Gastrointestinal, Genitourinary, Musculoskeletal, Integumentary, Endocrine and Eyes/Ears/Nose/Throat Exam Surgical H&P Exam: Normal: HEENT, Normal: Heart, Normal: Lungs, Normal: Extremities, Normal: Abdomen, Normal: Skin and Normal: Neurological Plan Diagnosis/Plan: Unchanged I have reviewed the history and physical and performed a pertinent physical examination on my patient. No changes have occurred unless specified. Time Spent With Patient Time: Total time managing care of this patient today ____ minutes.
--- NOTE | 2025-02-17 10:13 | PM.DS ---
DS: Providers Provider Date of Service: 02/18/25 Date of discharge: 02/18/25 Primary care physician: TEZ Dumas DS: Summary Hospital Course Hospital Course: ADMITTING DIAGNOSIS: obesity, duodenal ulcer, asthma, DJD, GERD, aortic stenosis, HTN DISCHARGE DIAGNOSIS: same, s/p laparoscopic sleeve gastrectomy and gastropexy PAST SURGICAL HISTORY:? Hx of colonoscopy History of esophagogastroduodenoscopy (EGD) History of back surgery PROCEDURE: upper endoscopy, laparoscopic sleeve gastrectomy and gastropexy DISCHARGE SUMMARY: History of Present Illness: The patient is a?39 year-old man with a BMI of?38.6 kg/m2 and associated co-morbidities as described above. The patient had extensive work-up, lost?42.9 lbs preoperatively and was electively scheduled for laparoscopic, possible open sleeve gastrectomy and gastropexy. Risks and complications of the surgery were discussed with the patient in advance, particularly the possibility of , pulmonary embolism, anastomotic leak, bleeding, bowel injury, GERD, cardiac, renal or pulmonary complications. The patient understood all the risks and was in agreement with the surgical plan. Hospital Course: The patient underwent an uneventful laparoscopic sleeve gastrectomy with gastropexy on the day of admission. Postoperatively, the patient was transferred to the surgical floor. The patient received IV acetaminophen and IV Dilaudid for pain control. Patient was started on bariatric phase 1 diet POD #0. On postoperative day one, the patient was feeling well without nausea, vomiting, fevers, or tachycardia. The patient had some mild incisional pain and the abdomen was soft.? ? On the morning of postoperative day one, the patient was continued on 1 ounce of water or ice every half hour. During the day, the patient did fairly well, having some incisional pain, but able to ambulate adequately and to tolerate liquids well. Since the patient is doing well, we decided that the patient was ready to be discharged. The patient was given instructions to follow-up in office next week and to call the office for any fever over 101, persistent abdominal pain, nausea, vomiting, GERD, symptoms of DVT such as calf tenderness, or leg swelling, or pulmonary embolism such as chest pain or shortness of breath.? The patient was also instructed to drink 40-60 ounces of liquids per day using the 1-ounce cups. The patient had been given prescriptions for Tylenol for pain, Zofran prn for nausea, and pantoprazole and carafate previously. The patient was encouraged to ambulate and use the incentive spirometer. The patient was allowed to shower, but no baths, and encouraged to stay active at home. All of these instructions were given to the patient personally. All questions were answered and the patient understood all instructions, the instructions were also given to the patient in print. Time Attestation Discharge Coordination Time (in mins): 30 Quality: Safe Use of Opioids Does Pt have an Active Cancer Diagnosis on the Problem List?: No Quality: Stroke Does the patient have a stroke diagnosis?: No Physical Exam Vital Signs: Vital Signs: Last Vital Signs Temp 98.2 F 02/17/25 06:45 Pulse 77 02/17/25 06:45 Resp 16 02/17/25 06:45 BP 148/88 H 02/17/25 06:45 Pulse Ox 98 02/17/25 06:45 O2 Del Method Room Air 02/17/25 06:45 BMI result Body Mass Index 38.6 DS: Data Data Completed and Pending Pending studies at discharge: Pending at discharge 02/17/25 09:20 Surgical [PTH] Routine Discharge Plan Discharge Patient Disposition: Home, Self-Care Referrals: Ani Hardin FNP [Primary Care Provider, Internal Medicine] - 1 Week Discharge Medications: Held diltiazem HCl [Tiazac] 240 mg capsule,extended release 24hr 240 mg PO DAILY Hold Instructions: Resume on 02/18/25. Only resume according to parameters given by Dr. Nick allopurinol 100 mg tablet 100 mg PO DAILY Hold Instructions: Resume on 02/24/25. Discontinued meloxicam 15 mg tablet 15 mg PO DAILY pantoprazole 40 mg tablet,delayed release (DR/EC) 40 mg PO DAILY Qty: 90 0RF polyethylene glycol 3350 17 gram/dose powder 17 g PO DAILY Qty: 238 0RF Rx Instructions: Mix each measuring cup with 8oz of water, Crystal light, or Gatorade zero, or Propel and do 7 measuring cups on 02/15/25 and another 7 measuring cups on 02/16/25 mecobalamin (vitamin B12) 1,000 mcg tablet,disintegrating 1,000 mcg sublingual DAILY Qty: 90 0RF Rx Instructions: place tablet under tongue and allow to dissolve for at least30 secs before swallowing No Action pantoprazole 40 mg tablet,delayed release (DR/EC) 40 mg PO DAILY@0630 cyanocobalamin (vitamin B-12) [Vitamin B-12] 1,000 mcg Tablet, Sublingual 1,000 mcg SUBLINGUAL DAILY Discharge Orders: Discharge Order (Routine); Ordered 02/18/25 Ordered By: Sesar Nick Activity on Discharge: No heavy lifting Activity Restrictions/Additional Instructions: No tub baths, sex or returning to work until discussed at first post op appointment. No alcohol, tobacco or illegal drug use. Continue to use incentive spirometer hourly while awake. Walk in home for 5- 10 minutes every 2 hours during the first week. Wear abdominal binder with activity. Follow all meal plan instructions from your bariatric surgeon. Review bariatric handbook and call with any questions. Discharge Instructions 1. Please call your doctor or come back to the emergency room should any new symptoms arise. 2. Activity: abstain from alcohol,? limited stair climbing, no bending, no driving, no exercise, no illicit substances, no lifting, no sex, no tub bath, no work. 4. Diet: follow your bariatric surgeon's recommendations for advancing diet. 5. Dressing Change/Wound Care: Your incisions are covered with waterproof dressings. You can shower with these and pat dry. Do not rub over dressings or incisions. If the area is tender, you may apply an ice pack for short intervals (no more than 20 minutes on, followed by at least 20 minutes off). Do not apply heat. Do not use creams, lotions, or topical antibiotics unless instructed to do so by your surgeon. 6. Call your doctor if: - Your temperature exceeds 101.5 F - You experience excessive pain or swelling - You have an unexpected reaction to medication - You have excessive bleeding - You experience continued vomiting/nausea - Your incision begins to separate - Your incision shows signs of infection such as increased redness, swelling, excessive pain, heat, or drainage (light blood or clear fluid is normal) General instructions: No lifting greater than 10 lbs for the next 6 weeks[address] driving within 24 hours of taking narcotic pain medications. If you do not move your bowels in the next 2 days, please take milk of magnesia over the counter. Please follow the post op diet and do not advance your diet until instructed by your surgeon or until you are seen in the office in about 1 week. Please walk around your home every hour or two to prevent blood clots from forming in your legs. You do not need to wake from sleeping to walk. Please sleep in a bed or couch to prevent kinking at the hips and knees. Please take your incentive spirometer (your lung financial reporting director) home with you and use it for the next few days to prevent pneumonias. You may shower; no hot tubs, baths or swimming pools. Please make sure you are consuming 40-60 ounces of total fluids per day. Avoid all carbonation. Please call the office with any questions or concerns such as increasing abdominal pain, fever, chills, shortness of breath, chest pain, leg pain or swelling, or redness or drainage from your incisions. Do not hesitate to contact the office with any questions at . The patient's medical history has been reviewed and they are considered low risk for post op DVT and therefore DVT prophylaxis is not considered necessary. Travel after surgery was reviewed. The patient has not disclosed any travel plans during the first 30 days after surgery and they have been advised that within the first 30 days after surgery any bus, plane, train or car travel over 2 hours in duration is contraindicated due to the possibility of developing blood clots from immobility. Any travel, needs to include periods of ambulation of 10 minutes in duration every 2 hours.? The patient was instructed to discuss any plans for travel during this period with their bariatric surgeon. Print Language: Arabic Discharge Date/Time: 02/18/25 09:15
--- NOTE | 2025-02-17 10:22 | PM.OP ---
Brief Operative Note Date of Service: 02/17/25 Pre-op diagnosis: Severe obesity with comorbidities (see below) Post-op diagnosis: same (& congenital abdominal adhesions) Procedure: INITIAL PATIENT BMI ON PRESENTATION AT OUR OFFICE: 45.1 kg/m2 LAST BMI BEFORE SURGERY: 38.5 kg/m2 COMORBIDITIES: sleep apnea on CPAP, GERD, hypertension, gout, DJD, asthma, liver steatosis ?The patient presented to the Weight Management Program with significant obesity that was negatively impacting the patient's comorbidities as listed above.? The program is a phased program with a special focus on preoperative medical weight management to promote substantial weight loss and prepare the patients for the second phase of the program: bariatric surgery. The patient participated in an intensive weekly lifestyle ?intervention and exercise program during which the patient ?has lost between the initial office visit and the last preoperative visit 42.8lbs, or 14.4% of initial actual body weight. It was deemed appropriate for the patient to now have bariatric surgery. In light of the current Covid-19 pandemic and the well documented strong association of obesity and increased risk of worse outcomes if infected with Covid-19 (REFERENCES:https://pubmed.ncbi.nlm.nih.gov/45226367/,?https://pubmed.ncbi.nlm.nih.gov/52145931/), any delay in undergoing bariatric surgery may lead to the patient's worsening health condition and increased?risk of more severe Covid-19 disease if infected. In addition a recent?study from [facility] published in [facility] on 05/09/2021 ([email or web address]) found that, among patients with obesity, substantial weight loss achieved with surgery was associated with improved outcomes of COVID-19 infection. The findings suggest that obesity can be a modifiable risk factor for the severity of COVID-19 infection. In addition, the patient met the BMI-criteria for bariatric surgery based on the BMI on initial presentation. The patient should not be penalized for achieving such weight loss because ?it is not sustainable long-term without surgical intervention and it was achieved in preparation for bariatric surgery ?under my direction and based on my published research ([email or web address] and?[email or web address].soard.org/article/[email or web address])08030-X/pdf) ?that a 10% preoperative weight loss improves long-term weight loss after surgery and reduces perioperative complications.? Insurance carriers such as [facility] have endorsed my recommendations ?and have included in their policies criteria to include a 10% preoperative weight loss requirement. PROCEDURE: Esophago-gastroscopy, laparoscopic lysis of adhesions, laparoscopic sleeve gastrectomy and laparoscopic gastropexy INDICATIONS: This is a 39 year-old male who was electively scheduled for laparoscopic, possibly open sleeve gastrectomy. The risks and complications of the procedure were discussed with the patient in advance, particularly the possibility of ; pulmonary embolism; staple line leak; bleeding; GERD; cardiac, pulmonary, or renal complications; as well as long-term problems such as insufficient weight loss, vitamin deficiency, strictures, or ulcers. The patient understood all the risks, and was in agreement to proceed with surgery. DESCRIPTION OF PROCEDURE: After informed consent was obtained from the patient, the patient was given preoperative antibiotics, and was transferred to the operating room. After successful induction of general anesthesia, pneumatic compression devices were placed on both lower extremities. An upper endoscopy was performed next. The oropharynx and esophagus appeared to be within normal limits. There was no diaphragmatic hernia present. The stomach was entered. Then after all fluid and air were suctioned and the stomach was fully decompressed, the scope was withdrawn and secured in the mid esophagus. The patient was then prepped and draped in the usual sterile manner, and abdominal access was established at the right upper quadrant with the Alessandra technique. A 12 mm blunt port was inserted, and the abdomen was insufflated with CO2 to a pressure of 15 mmHg. Under direct visualization, additional ports were placed, specifically two 5 mm Versi-step ports to the left upper quadrant, and a 5 mm Versi-Step port to the right upper quadrant. 1% lidocaine plain was used to infiltrate all port sites as well as all fascia defects. Following that, the patient was placed in a steep reverse Trendelenburg position. An additional 5 mm port was placed to the right flank for the Mediflex retractor that was used to retract the left lobe of the liver. The gastro-esophageal fat pad was opened with the ultrasonic device (Dandyerbeat, Olympus) and the anterior esophagus and hiatus were exposed. The angle of His was opened with the ultrasonic device the fundus of the stomach from any diaphragmatic and splenic attachments. I then opened the gastrocolic ligament between the transverse colon and the greater curvature of the stomach with the ultrasonic device to enter the lesser sac and facilitate the ligation of the short gastric vessels. I started at a mid-point along the greater curvature and using the Thunderbeat, all short gastric vessels were divided all the way to the angle of His until the left sabine was completely dissected at its entirety. I then divided the gastro-colic ligament distally to a distance of about 3-4 cm proximal to the pylorus. There were extensive congenital adhesions between the pancreas and posterior gastric wall. Those were lysed completely with the ultrasonic device. Adhesiolysis took approximately 45 min to complete. The stomach was then divided transversely with three Endo TIM-45 purple and three TIM-60 articulating purple loads using the LendUp stapler and loads. Every effort was made that the gastric sleeve had a tubular shape and an even caliber throughout. Once the sleeve resection was completed, the staple line of the gastric sleeve was reinforced with Hemoclips. The resected stomach was retrieved without difficulty from the Alessandra port. A gastropexy was then performed in order to prevent postoperative GERD and partial gastric volvulus. Several interrupted 2.0 Surgidac sutures were placed between the sleeve's staple line and the previously divided greater omentum and gastro-colic ligament using the Endo-Stitch device. ?An upper endoscopy was performed. There was no narrowing at the GE junction. The scope was easily advanced all the way to the pylorus which was clearly visualized. There was no narrowing anywhere and the sleeve's caliber was even throughout. The sleeve's staple line was inspected and there was no evidence of ischemia, bleeding or dehiscence. At that point the gastroscope was withdrawn from the patient?s mouth while we were decompressing the bowel and the stomach from any remaining air. I looked into the lesser sac to see how the sleeve was situating and it was situating well. There was no bleeding from the staple line, spleen, or short gastric vessels. The Mediflex retractor was removed, and the undersurface of the liver was inspected and there was no bleeding. The patient was placed in supine position. I closed the fascial defect of the 12 mm port site with a figure of eight #1 Polysorb suture. Then 30cc Ropivacaine plain with 10 mg of Dexamethasone were used to infiltrate the fascial closure as well as all skin incisions. At this point, the abdomen was deflated, all ports were removed under direct vision, and no bleeding was noted from any of the port sites. The skin incisions were irrigated with saline and were closed with 4-0 absorbable monofilament sutures. Steri-Strips and OpSites were used to cover all incisions. The patient was extubated and was transferred in stable condition to the recovery room for further care. I was present and performed all fregoso parts of the procedure. Ms. Roca was the international first officer. There were no residents to assist with this case. David Nick MD, PhD, FACS Surgeon: Sesar Nick MD Anesthesia: GETA, local and other (TAP block) Was an Abnormal Psychology Teacher used for this Procedure?: No Estimated blood loss (mL): 10 IV fluids (mL): 2,100 Urine output (mL): 0 (No Malik to record output) Pathology: other (1) Stomach, 2) gastro-esophageal fat pad) Condition: stable Disposition: PACU
--- NOTE | 2025-02-17 10:26 | P.PNGS_ITS ---
Subjective Subjective Date of Service: 02/18/25 Interval history: Feels well. Mild incisional pain. He is tolerating phase 1 bariatric diet Physical Exam 2 Vital Signs: Vital Signs: Last Vital Signs Temp 98.4 F 02/17/25 10:09 Pulse 89 02/17/25 10:09 Resp 18 02/17/25 10:09 BP 155/78 H 02/17/25 10:09 Pulse Ox 100 02/17/25 10:09 O2 Del Method Simple Mask 02/17/25 10:09 O2 Flow Rate 6 02/17/25 10:09 BMI result Body Mass Index 38.6 GI: Inspection: Yes normal to inspection, Yes incision (clean, dry and intact) and Yes obesity Palpation (GI): Soft to palpation Extrem: Right lower extremity: normal to inspection (no calf tenderness) L eft lower extremity: normal to inspection (no calf tenderness) Objective Data Active Medications Haloperidol Lactate (Haloperidol Lactate 5 Mg/Ml Vial) 1 mg IVPUSH ONCE PRN PRN Reason: intractable nausea Stop: 02/17/25 13:11 Hydromorphone HCl (Hydromorphone Hcl 0.5 Mg/0.5 Ml Syringe) 0.5 mg IVPUSH Q5M PRN PRN Reason: Pain, Moderate to Severe (Pain Scale 4-10) Stop: 02/17/25 13:11 Lactated Ringer's (Lr) 1,000 mls @ 100 mls/hr IVCONT .Q10H NELL Stop: 02/17/25 10:29 Naloxone HCl (Naloxone Hcl 0.4 Mg/Ml Vial) 0.04 mg IVPUSH Q5M PRN PRN Reason: Excessive sedation or RR < 8 Labs 02/18/25 05:42 02/18/25 05:42 Procedures Date of Service Date of Service: 02/18/25 Progress Note: A&P Assessment and plan (1) Obesity: Status: Acute (2) BMI 38.0-38.9,adult: Status: Acute (3) Hypertension: Status: Acute (4) Aortic stenosis: Status: Acute (5) GERD (gastroesophageal reflux disease): Status: Acute (6) DJD (degenerative joint disease): Status: Acute (7) Asthma: Status: Acute (8) MELANIA on CPAP: Status: Acute (9) Congenital intra-abdominal adhesions: Status: Acute (10) Gout: Status: Acute (11) Steatosis, liver: Status: Acute (12) S/P laparoscopic sleeve gastrectomy: Status: Acute Assessment and Plan: s/p laparoscopic sleeve gastrectomy, lysis of adhesions and gastropexy Doing well Will check am labs and if OK the patient will be discharged home Time Spent With Patient Time: Total time managing care of this patient today ____ minutes. Quality Stroke Does the patient have a stroke diagnosis?: No VTE Prior VTE?: No VTE Risk Level:: Surgical - moderate VTE Device Contraindication: N/A - Device Ordered VTE Drug Contraindication: Treatment Not Indicated
[2025-02-17 10:40] LABS: Hematocrit 44.9 % (42.0-52.0); Hemoglobin 14.2 g/dl (14.0-18.0)
[2025-02-17 10:53] LABS: Anion Gap 11 (12-20); Blood Urea Nitrogen 11 mg/dL (9-16); Calcium 9.0 mg/dL (8.4-10.2); Carbon Dioxide 29 mmol/L (22-29); Chloride 105 mmol/L (96-108); Creatinine Clr Calc Pharmacy 166.3; Estimated Glomerular Filt Rate > 60; Potassium 4.2 mmol/L (3.3-5.1); Sodium 141 mmol/L (135-145)
[2025-02-17] MEDS: Lactated Ringers 1,000 ML 100 ML IVCONT ×3 (11:36→21:19)
--- NOTE | 2025-02-17 14:53 | PHA.MEDREC ---
Addendum entered by Henrietta Hinson RPh 02/17/25 15:02: Reviewed by [facility]. Original Note: Pharmacy Consult ? Medication Reconciliation Pharmacy has completed the medication reconciliation. Spoke with pt and he confirmed his medications. Pt states he has not really taken any of his HBP medications, since loosing weight recently and his BP normalizing to the pt; Chlorthalidone, Amlodipine or Lisinopril was last taken in December 2024 and Diltiazem was last taken Sunday, pt states his Dr stopped the Meloxicam 15mg tab 02/[address] visit and pt confirmed he is starting Ondansetron and Sucralfate after he gets home from the surgery.
[2025-02-17] MEDS: 0.9 % Sodium Chloride Flush 3 ML SYRINGE IVFLUSH (19:39)
[2025-02-18] VITALS: BP 134/80; PULSE 69; RESP 15; TEMP 36.2; O2SAT 98
[2025-02-18 03:11] VITALS: BP 132/76; PULSE 59; RESP 16; TEMP 36.2; O2SAT 99
[2025-02-18 06:10] LABS: MANUAL DIFF FLAG NO
[2025-02-18 06:21] LABS: Hematocrit 37.8 % (42.0-52.0); Hemoglobin 12.6 g/dl (14.0-18.0); Imm Gran Abs Auto 0.03 X10*3/uL (0.00-0.03); Imm Gran Pct Auto 0.3 % (0.0-0.4); Lymphocytes Absolute Auto 1.9 X10*3/uL (1.2-4.9); Mean Corpuscular HGB Conc 33.3 g/dl (31.0-36.0); Mean Corpuscular Hemoglobin 26.8 pg (27.0-33.0); Mean Corpuscular Volume 80.3 fL (80.0-98.0); NRBC Abs Auto 0.000 X10*3/uL (0.0-0.012); NRBC Pct Auto 0.0 /100WBC (0.0-0.2); Platelet Count 231 X10*3/uL (160-400); Red Blood Count 4.71 X10*6/uL (4.60-5.80); White Blood Count 11.0 X10*3/uL (4.8-10.8)
[2025-02-18] MEDS: Lactated Ringers 1,000 ML 100 ML IVCONT (06:34)
[2025-02-18 06:43] LABS: Anion Gap 13 (12-20); Blood Urea Nitrogen 12 mg/dL (9-16); Calcium 9.0 mg/dL (8.4-10.2); Carbon Dioxide 26 mmol/L (22-29); Chloride 106 mmol/L (96-108); Creatinine Clr Calc Pharmacy 183.1; Estimated Glomerular Filt Rate > 60; Potassium 4.2 mmol/L (3.3-5.1); Sodium 141 mmol/L (135-145)
[2025-02-18 07:30] VITALS: BP 123/67; PULSE 54; RESP 18; TEMP 36.6; O2SAT 98
--- NOTE | 2025-02-18 09:00 | HO.POSTANES ---
Post Anesthesia Evaluation Post Anesthesia Evaluation Date of Service: 02/18/25 Vital Signs: Vital Signs Temp Pulse Resp BP Pulse Ox O2 Del Method 02/18/25 07:30 97.8 F 54 18 123/67 98 Room Air 02/18/25 03:11 97.2 F 59 16 132/76 99 Room Air 02/18/25 00:00 97.2 F 69 15 134/80 98 Room Air Anesthesia: General Mental Status: Awake Pain Control: Satisfactory Nausea/Vomiting: None Hydration: Adequate Anesthesia-Related Issues: No Anes. Related Issues (was given narcan, reports being very sensitive to medication)
--- NOTE | 2025-02-18 09:31 | MHC.CM.PN ---
Patient dc'd home self care via private transport prior to CM assessment
== END 2025-02-18 09:15 | disposition home or self-care (01) ==
LOC: HO.SSS 10:11 → HO.S3 10:15
PROVIDERS: Physician Assistant Surgical; PCP Nurse Practitioner Family; Visit Provider Surgery
PROC: (CPT 43845; principal; 2025-02-17 07:30)
DX: E66.01 Morbid (severe) obesity due to excess calories (principal); Z68.38 Body mass index [BMI] 38.0-38.9, adult; K21.9 Gastro-esophageal reflux disease without esophagitis; Q43.3 Congenital malformations of intestinal fixation; K76.0 Fatty (change of) liver, not elsewhere classified; G47.33 Obstructive sleep apnea (adult) (pediatric); I10 Essential (primary) hypertension; I35.0 Nonrheumatic aortic (valve) stenosis; J45.909 Unspecified asthma, uncomplicated; M19.90 Unspecified osteoarthritis, unspecified site; M10.9 Gout, unspecified; Z79.899 Other long term (current) drug therapy; Z99.89 Dependence on other enabling machines and devices; Z98.890 Other specified postprocedural states
CPT/HCPCS: 43775; 43659; 36415; 80048; 80053; 80061; 83036; 83525; 84443; 85014; 85018; 85025; 85610; 85730; 86140; 86850; 86900; 86901; 88304; 88307; 88342; A4649; C9145; J0131; J0690; J1100; J1171; J1308; J1885; J2003; J2312; J2405; J2704; J2795; J3010; J7120

== ENCOUNTER → 2025-02-17 05:52 | Outpatient (BNV) | payer OTHER, SELFPAY | PROVIDERS: PCP Nurse Practitioner Family; Visit Provider Surgery | DX: E66.812 Obesity, class 2 (principal); E66.01 Morbid (severe) obesity due to excess calories; Z68.38 Body mass index [BMI] 38.0-38.9, adult; I10 Essential (primary) hypertension; I35.0 Nonrheumatic aortic (valve) stenosis; K21.9 Gastro-esophageal reflux disease without esophagitis; M19.90 Unspecified osteoarthritis, unspecified site; J45.909 Unspecified asthma, uncomplicated; G47.33 Obstructive sleep apnea (adult) (pediatric); Q43.3 Congenital malformations of intestinal fixation; M10.9 Gout, unspecified; K76.0 Fatty (change of) liver, not elsewhere classified; Z98.84 Bariatric surgery status | CPT/HCPCS: 99024 ==

== ENCOUNTER 2025-02-25 09:14 | Outpatient (AMB) | payer OTHER, SELFPAY ==
--- NOTE | 2025-02-25 09:05 | A.OFFWM_ITS ---
Intake Intake Visit Reasons: TV PO LSG 02/17/25 Allergies spironolactone Adverse Reaction (Verified 02/10/25 11:30) hypokalemia, lump on chest PFSH Medical History (Updated 02/19/25 @ 00:02 by Background Daemon) Gout Hx of hypokalemia MELANIA on CPAP Ascending aorta dilation Bicuspid aortic valve BMI 38.0-38.9,adult Obesity History of herniated intervertebral disc Asthma DJD (degenerative joint disease) GERD (gastroesophageal reflux disease) Aortic stenosis Hypertension Morbid obesity Surgical History (Updated 02/19/25 @ 00:02 by Background Daemon) Hx of colonoscopy History of esophagogastroduodenoscopy (EGD) (01/15/25) History of back surgery (~2019) Family History (Updated 11/19/24 @ 14:58 by Krystina Bowers [facility]) Mother Hypertension Heart problem Father Diabetes type 2 Hypertension Sleep apnea Daughter No problems noted. Daughter No problems noted. Social History Household Members: Family Housing: House Are you a primary senior resident care director to a significant other at home: No Do you presently have visiting nurse or other home services: No 75 years or older and lives alone: No Alcohol intake: current Alcohol intake frequency: does not drink Patient Tobacco Use Status: Never used Tobacco e-Cigarette/Vaping Use: Never Used Current occupational status: employed Behavioral Health Assessment Weight Management Therapy Therapy Notes Details Subjective: Patient underwent weight loss surgery on 02/17/2025. Preoperative weight was 253 lbs; current weight is 238 lbs. Patient reports initial postoperative period was challenging for the first three days, but by day four began to feel better and currently feels well. She is tolerating the liquid diet without difficulty. Mood is good today, and she has noticed improved sleep over the past few days. Denies hunger or intrusive thoughts about food. Reports getting tired easily, so she is pacing herself and managing her energy wisely. Primary support is her . Objective: The patient presents for a behavioral health post-operative follow-up visit. A guided emotional check-in was conducted to assess her current functioning, recovery, mood, and emotional state. Psychoeducation was provided on the emotional and psychological adjustments commonly experienced after bariatric surgery. We also focused on distinguishing between hunger and cravings or food thoughts, exploring possible reasons for these experiences, and strategies to work on her mindset. Emphasis was placed on becoming mindful of her physical and mental needs during these times while staying on track. The importance of adhering to the Weight Management Program (WMP) providers' instructions was emphasized, including the pace of drinking and following the meal and exercise plan. Tips and recommendations for long-term success were also discussed. Program resources were provided, and the patient was invited to join our Facebook group to stay informed about ongoing events and activities. Assessment/Response: * Mental status: WNL * Risk reported/identified: None Assessment & Plan Assessment & Plan (1) Adjustment disorder: Code(s): F43.20 - Adjustment disorder, unspecified (2) S/P laparoscopic sleeve gastrectomy: Code(s): Z98.84 - Bariatric surgery status Plan No safety concerns or issues were identified that would necessitate behavioral health monitoring. The patient declined further visits but is aware of the available behavioral health support if needed in the future. Telehealth Telehealth Telehealth Platform: Telephone Location of provider rendering services: practice address Location of patient: address on file Patient Identification confirmed using: Name, : Yes Telehealth method: voice only Patient verbally consented to treatment: Yes Patient verbally consented to billing insurance company: Yes Patient informed of any privacy concerns related to visit: Yes Minutes spent on Phone/Video with Pt.: 25 Coding Level of Care Code Established Pt Tele Psytx 30 mins (02161) Patient Type Established Diagnoses Adjustment disorder F43.20 S/P laparoscopic sleeve gastrectomy Z98.84 Time Spent (min) 25
--- OUTSIDE RECORDS SUMMARY | 2025-02-25 10:16 | XMS_ITS | Clinical Summary ---
Author Organization [address] [place] [address] [place] [phone] Phone Care Team Providers Care Ticket Attendant Name Role Phone Thomas Farmer MD Primary Care Provider [phone] Allergies Active Allergy Reactions Criticality Noted Date [...] EDT Office Visit Plastic & Reconstructive Surgery [address] [phone] Nhi Alaniz PA Lipoma of face (Primary Dx) 12/05/2024 1:00 PM EDT Procedure visit Plastic & Reconstructive Surgery [address] [phone] Greg Ugarte DO Disorder of soft tissue (Primary Dx) from [...] of 2 - Risk 2-dose series) 2002 HPV Vaccines (1 - 3-dose SCDM series) 2010 Cholesterol Screening (Lipid Panel) 04/11/2022 HIV Screening 04/11/2022 Hepatitis C Screening 04/11/2022 Social Influencers of Health Screening 04/11/2022 Hypertension/CHF/CAD Annual BMP Blood Test 04/28/2022 Depression Screening 05/14/2024 COVID-19 Vaccine ( - season) 2025 07/24/2021, 01/27/2021, 01/06/2021 Influenza Vaccine (#1) 2025 , 03/05/2023, 03/12/2022, Additional history exists DTaP,Tdap,and Td Vaccines (3 - Td or Tdap) 07/26/2028 07/26/2018, 08/05/2014 Pneumococcal Vaccine: Pediatrics (0 to 5 Years) and At-Risk Patients (6 to 49 Years) (3 of 3 - PCV20 or PCV21) 2033 10/22/2018, 01/25/2017 RSV Immunization Adult Patients (1 - 1-dose 75+ series) 2058 Hepatitis B Vaccines Completed 03/01/2024, 03/01/2024, 01/17/2024 [...] forehead-excision : -LIPOMA 12/08/2024 10:35 AM EDT [facility] Clinical Information Disorder of soft tissue M79.9 12/08/2024 10:35 AM EDT [facility] Gross Description A. Forehead, excision lesion [...] de la torre-white to yellow fibroadipose tissue. Worsted Winder sections of both tissues are submitted one cassette, three pieces. BG 12/08/2024 10:35 AM EDT [facility] Disclaimer Unless otherwise specified, all tissue is 10% NB formalin fixed and paraffin embedded. 12/08/2024 10:35 AM EDT [facility] Tissue Forehead structure / Unknown Non-blood Collection / Unknown 12/05/2024 1:58 PM EDT 12/05/2024 1:58 PM EDT us Greg Ugarte DO LAB PATHOLOGY ORDERABLES Fin al Result [facility] [address] [place] [address], from Last 3 Months Insurance [facility] Care Teams Ticket Attendant Relationship Specialty Start Date End Date Thomas Farmer MD [address] [place] [phone] PCP - General Internal Medicine 10/15/24
--- OUTSIDE RECORDS SUMMARY | 2025-02-25 10:16 | XMS_ITS | Clinical Summary ---
Author Organization [facility] Address [address] [place] [address] Care Team Providers Care Hand I Thermal Cutter Name Role Phone Unavailable Primary Care Provider [...] - 19+ 3-dose series) 2002 COVID-19 Vaccine ( - 2023-2 5 season) 2025 HPV Vaccines (No Doses Required) Completed Pneumococcal Vaccine: Pediat goyo (0-5 Years) and At-Risk Patients (6 to 49 Years) Aged Out No longer eligible b ased on patient's age to complete this topic
--- OUTSIDE RECORDS SUMMARY | 2025-02-25 10:17 | XMS_ITS | Data Portability ---
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 Restrepo who was available but who did not see the patient. Chief Complaint: left hand pain HPI: The patient has been dealing with hand and wrist pain over the past 3 days after doing a lot of closing up of his summer outdoor area including his pool. He was doing a lot of lifting and gripping activities. This is now what he is having difficulty with. Pain is throughout the wrist joint. 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 He has never had it in the wrist. Past family, medical, social history and review of systems has been reviewed, updated and signed by me and is located in the patient's chart. Examination: The patient is well appearing and in no apparent distress. Alert and oriented x3. Left wrist: Visual inspection reveals no obvious deformity, ecchymosis or skin breakdown. No erythema. There is some swelling noted over the distal radius. More radial than ulnar. radiocarpal joint effusion. Flexors extensors intrinsics intact. Positive nerve compression test. Negative scaphoid shift negative DRUJ shuck. Neurovascularly intact distally. X-rays ordered, obtained and reviewed at [facility]: 4 views of the left hand and wrist reveal no acute fracture or dislocation. No osteoarthritic changes. No gouty tophi. Impression: Left wrist sprain versus true joint effusion due to gouty arthropathy Plan: I explained the nature of the diagnosis with the patient and its treatment options both conservative and surgical. At this point in time I discussed with the patient that he may benefit from a Medrol Dosepak and a wrist brace. Prescriptions were provided. He may be experiencing a gouty flare. This may be just due to him overusing it on Sunday. Will have him follow-up after the Medrol Dosepak finishes for further evaluation if necessary. The patient understands and agrees with the plan. They know to call if they have any further questions or concerns regarding their symptoms, or to follow up sooner if needed. The patient is ambulatory, but has weakness and/or instability of their extremity which requires stabilization from this semi-rigid/rigid orthosis to improve their function. Verbal and written instructions for the use and application of this item were given. Patient was instructed that should the brace result in increased pain, decreased sensation, increased swelling or an overall worsening of their medical condition, to please contact our office immediately. Not available 01/26/2025 15:25:05 Plan of Treatment Reminders Order Date Submit Date Provider Last Modified By Organization Details Last Modified Time Details Appointments NEW PATIENT 10 2024 09:20A M Romeo Hodgson PA-C Not available Not available Not available Lab None recorded . Referral None recorded . Procedures None recorded . Surgeries None recorded . Imaging XR, knee, 4 or more view - UC1 4V left knee pain 2024 025 [facility], [address], [address], [place], [address], 02/02/2025 13:35:03 XR, hand, 2 view - uc rm 4. LT hand [address] [facility], [address], [address], [place], [address], 02/02/2025 15:55:44 XR, wrist, 2 view - uc rm 4. LT wrist [address] [facility], [address], [address], [place], [address], 02/02/2025 15:55:44 XR, foot, 3 or more view - new pt 3 views lorenzo foot wb rm 107 2024 025 [email or web address], [address], [address], [place], [address], 09/22/2024 11:18:54 XR, knee, 4 or more view - rm 201, left knee pain 2023 024 [email or web address] [facility] Office, [address], [address], [place], [address], 12/17/2023 11:46:18 Medication Orders Medrol (Jake) 4 mg tablets in a dose pack 2024 025 [email or web address] [facility] #[id number], [address] [place], [address], 01/26/2025 14:25:29 Patient TargetsNo targets recorded. Patient InstructionsNo instructions recorded. Reason for Referral None Reported. Results Created Date Observation Date Name Description Value Unit Range Abnormal Flag Note LastModifiedBy Organization Detail LastModifiedTime 11/30/1912/01/2023 CBC/D /PLT W/ REFLE X OSCAR TIN WBC 17.3 x10e3 /uL 3.4-10 .8 above high normal Not Available [facility] ([facility]) [address] [place], [address], 12/05/2023 00:05:22 11/30/19 24 12/01/2023 CBC/D /PLT W/ REFLE X OSCAR TIN RBC 5.17 x10e6 /uL 4.14-5 .80 normal Not Available [facility] ([facility]) [address] [place], [address], 12/05/2023 00:05:22 11/30/19 24 12/01/2023 CBC/D /PLT W/ REFLE X OSCAR TIN hemoglobin 13.7 g/dL 13.0-1 7.7 normal Not Available [facility] ([facility]) [address] [facility], [place], [address], 12/05/2023 00:05:22 11/30/19 24 12/01/2023 CBC/D /PLT W/ REFLE X OSCAR TIN hematocrit 43.5 % 37.5-5 1.0 normal Not Available [facility] ([facility]) [address] [facility], [place], [address], 12/05/2023 00:05:22 11/30/1912/01/2023 CBC/D /PLT W/ REFLE X OSCAR TIN MCV 84 fL 79-97 normal Not Available [facility] ([facility]) [address] [facility], [place], [address], 12/05/2023 00:05:22 11/30/1912/01/2023 CBC/D /PLT W/ REFLE X OSCAR TIN MCH 26.5 pg 26.6-3 3.0 below low normal Not Available [facility] ([facility]) [address] [place], [address], 12/05/2023 00:05:22 11/30/19 24 12/01/2023 CBC/D /PLT W/ REFLE X OSCAR TIN MCHC 31.5 g/dL 31.5-3 5.7 normal Not Available [facility] ([facility]) [address] [place], [address], 12/05/2023 00:05:22 11/30/1912/01/2023 CBC/D /PLT W/ REFLE X OSCAR TIN RDW 13.1 % 11.6-1 5.4 Not Available [facility] ([facility]) [address] [place], [address], 12/05/2023 00:05:22 11/30/19 24 12/01/2023 CBC/D /PLT W/ REFLE X OSCAR TIN platelets 285 x10e3 /uL 150-45 0 normal Not Available [facility] ([facility]) [address] [facility], [place], [address], 12/05/2023 00:05:22 11/30/19 24 12/01/2023 CBC/D /PLT W/ REFLE X OSCAR TIN neutrophils 80 % not estab. normal Not Available [facility] ([facility]) [address] [facility], [place], [address], 12/05/2023 00:05:22 11/30/19 24 12/01/2023 CBC/D /PLT W/ REFLE X OSCAR TIN lymphs 13 % not estab. normal Not Available [facility] ([facility]) [address] [facility], [place], [address], 12/05/2023 00:05:22 11/30/19 24 12/01/2023 CBC/D /PLT W/ REFLE X OSCAR TIN monocytes 6 % not estab. normal Not Available [facility] ([facility]) [address] [facility], [place], [address], 12/05/2023 00:05:22 11/30/1912/01/2023 CBC/D /PLT W/ REFLE X OSCAR TIN eos 0 % not estab. normal Not Available [facility] ([facility]) [address] [facility], [place], [address], 12/05/2023 00:05:22 11/30/19 24 12/01/2023 CBC/D /PLT W/ REFLE X OSCAR TIN basos 0 % not estab. normal Not Available [facility] ([facility]) [address] [facility], [place], [address], 12/05/2023 00:05:22 11/30/19 24 12/01/2023 CBC/D /PLT W/ REFLE X OSCAR TIN immature cells [employer] Not Available [facility] ([facility]) [address] [place], [address], 12/05/2023 00:05:22 11/30/19 24 12/01/2023 CBC/D /PLT W/ REFLE X OSCAR TIN neutrophils (absolute) 13.8 x10e3 /uL 1.4-7. 0 above high normal Not Available [facility] ([facility]) [address] [place], [address], 12/05/2023 00:05:22 11/30/19 24 12/01/2023 CBC/D /PLT W/ REFLE X OSCAR TIN lymphs (absolute) 2.3 x10e3 /uL 0.7-3. 1 normal Not Available [facility] ([facility]) [address] [place], [address], 12/05/2023 00:05:22 11/30/19 24 12/01/2023 CBC/D /PLT W/ REFLE X OSCAR TIN monocytes(ab solute) 1.0 x10e3 /uL 0.1-0. 9 above high normal Not Available [facility] ([facility]) [address] [place], [address], 12/05/2023 00:05:22 11/30/19 24 12/01/2023 CBC/D /PLT W/ REFLE X OSCAR TIN eos (absolute) 0.0 x10e3 /uL 0.0-0. 4 normal Not Available [facility] ([facility]) [address] [place], [address], 12/05/2023 00:05:22 11/30/19 24 12/01/2023 CBC/D /PLT W/ REFLE X OSCAR TIN baso (absolute) 0.0 x10e3 /uL 0.0-0. 2 normal Not Available [facility] ([facility]) [address] [place], [address], 12/05/2023 00:05:22 11/30/19 24 12/01/2023 CBC/D /PLT W/ REFLE X OSCAR TIN immature granulocytes 1 % not estab. Not Available [facility] ([facility]) [address] [facility], [place], [address], 12/05/2023 00:05:22 11/30/19 24 12/01/2023 CBC/D /PLT W/ REFLE X OSCAR TIN immature grans (abs) 0.1 x10e3 /uL 0.0-0. 1 Not Available [facility] ([facility]) [address] [facility], [place], [address], 12/05/2023 00:05:22 11/30/1912/01/2023 CBC/D /PLT W/ REFLE X OSCAR TIN NRBC [employer] Not Available [facility] ([facility]) [address] [facility], [place], [address], 12/05/2023 00:05:22 11/30/1912/01/2023 CBC/D /PLT W/ REFLE X OSCAR TIN hematology comments: [employer] Not Available [facility] ([facility]) [address] [facility], [place], [address], 12/05/2023 00:05:22 11/30/19 24 12/04/2023 CBC/D /PLT W/ REFLE X OSCAR TIN ferritin 160 NG/mL 30-400 normal Not Available [facility] ([facility]) [address] [facility], [place], [address], 12/05/2023 00:05:22 11/30/19 24 12/01/2023 ANKIT+R F QN ANKIT direct Negati ve negati ve Not Available [facility] ([facility]) [address] [facility], [place], [address], 12/05/2023 00:05:23 11/30/19 24 12/01/2023 ANKIT+R F QN rheumatoid factor (rf) 10.6 IU/mL <14.0 normal Not Available [facility] ([facility]) [address] [facility], [place], [address], 12/05/2023 00:05:23 11/30/19 24 12/01/2023 URIC ACID uric acid 8.6 mg/dL 3.8-8. 4 above high normal Thera fabien prabhakar t for gout patie nts: <6.0 Not Available [facility] ([facility]) [address] [facility], [place], [address], 12/05/2023 00:05:23 10/01/19 24 09/30/2023 MRI, foot, w/o contr ast [facility] Access ion Number : [id number] Patihernandez t Name: Aditya Hummela caleb Record Number : [id number] Date of : 1985 Date of Exam: 2023 Referr ing Physic bonnie: [facility] ltvilla, Diana [facility] ([facility]) [address], [address] [facility] [place] [address] Exam: MR Foot (C-) CPT 41180 - Left Room Descri ption: [facility] Verio 3.0T MR Foot (C-) CPT 22517 CLINIC AL INDICA TION: M79.67 2 - [...] ly Signed By: Iliana Altamirano ra, MD [facility] ([facility]) [address], [place], [address], 10/02/2023 08:39:18 11/28/19 24 11/28/2023 XR, knee, 4 or more view [email or web address]:/ [email or web address] ?Encry pted=s hAaTro YD8dLq bEUv6g %2BXZw aYqtaq 0bqfl% 2Fg9IQ a4ajBk vP9nXo QUaueC m3YtLR FvZlgJ 8[facility] 3l0938 AC0Kpb XuHWaX eUC8mr 84%3D INTERFACE [facility] [address], [place], [address], 11/28/2023 10:16:44 11/28/19 24 11/28/2023 XR, knee, 4 or more view [email or web address]:/ [email or web address] ?Encry pted=s hAaTro YD8dLq bEUv6g %2BXZw aYqtaq 0bqfl% 2Fg9IQ a4ajBk vP9nXo QUaueC m3YtLR FvZlgJ JJ8mAn HZtai3 6u4539 AC0Kpb XuHWaX eUC8mr 84%3D INTERFACE [facility] [address], [place], [address], 11/28/2023 10:16:46 01/11/2009/20/2022 imagi ng/di agnos tic resul t No observ ation record ed. [email or web address] Not Available 12/14 04:40:51 01/11/20 24 10/26/2022 imagi ng/di agnos tic resul t No observ ation record ed. [email or web address] Not Available 12/14 04:40:57 01/11/2010/26/2022 imagi ng/di agnos tic resul t No observ ation record ed. [email or web address] Not Available 12/14 04:40:58 01/11/20 24 05/11/2023 imagi ng/di agnos tic resul t No observ ation record ed. [email or web address] Not Available 12/14 04:41:10 09/05/19 25 09/04/2024 XR, foot, 3 or more view [email or web address]:/ [email or web address] ?Encry pted=s hAaTro YD8dLq bEUv6g %2BXZw aYqtaq 0bqfl% 2Fg9IQ a4ajBk vP9nXo QUaueC m3YtLR FvZlgJ JJ8mAn HZtai3 9x4512 AC0Kla nyBUqC uKiQtr MwF INTERFACE [facility] [address] [facility] [address], [place], [address], 09/04/2024 13:24:38 09/05/19 25 09/04/2024 XR, foot, 3 or more view [email or web address]:/ [email or web address] ?Encry pted=s hAaTro YD8dLq bEUv6g %2BXZw aYqtaq 0bqfl% 2Fg9IQ a4ajBk vP9nXo QUaueC m3YtLR FvZlgJ JJ8mAn HZtai3 3z9349 AC0Kla nyBUqC uKiQtr MwF INTERFACE [facility] [address], [place], [address], 09/04/2024 13:24:40 11/27/1911/20/2024 nerve condu ction study /EMG, lower extre mity (PROC ) No observ ation record ed. [facility] Scheduling Dept [address], [place], [address], 11/26/2024 15:42:10 01/27/20 25 01/26/2025 XR, hand, 2 view [email or web address] ?Encry pted=s hAaTro YD8dLq bEUv6g %2BXZw aYqtaq 0bqfl% 2Fg9IQ a4ajBk vP9nXo QUaueC m3YtLR FvZlgJ JJ8mAn HZtai3 6x3715 AC0Klb HmHVKK kKiQtr MwF INTERFACE [facility] [address], [place], [address], 01/26/2025 10:29:35 01/27/20 25 01/26/2025 XR, hand, 2 view [email or web address]:/ [email or web address] ?Encry pted=s hAaTro YD8dLq bEUv6g %2BXZw aYqtaq 0bqfl% 2Fg9IQ a4ajBk vP9nXo QUaueC m3YtLR FvZlgJ JJ8mAn HZtai3 4y1346 AC0Klb HmHVKK kKiQtr MwF INTERFACE [facility] [address], [place], [address], 01/26/2025 10:29:37 01/27/20 25 01/26/2025 XR, wrist , 2 view [email or web address]:/ [email or web address] ?Encry pted=s hAaTro YD8dLq bEUv6g %2BXZw aYqtaq 0bqfl% 2Fg9IQ a4ajBk vP9nXo QUaueC m3YtLR FvZlgJ JJ8mAn HZtai3 3o5055 AC0Klb HmHVKK iKiQtr MwF INTERFACE [facility] [address] [facility] [address], [place], [address], 01/26/2025 10:30:42 01/27/20 25 01/26/2025 XR, wrist , 2 view [email or web address]:/ [email or web address] ?Encry pted=s hAaTro YD8dLq bEUv6g %2BXZw aYqtaq 0bqfl% 2Fg9IQ a4ajBk vP9nXo QUaueC m3YtLR FvZlgJ JJ8mAn HZtai3 8s9872 AC0Klb HmHVKK iKiQtr MwF INTERFACE [facility] [address] [address], [place], [address], 01/26/2025 10:30:43 02/03/20 25 02/02/2025 XR, knee, 4 or more view [email or web address]:/ [email or web address] ?Encry pted=s hAaTro YD8dLq bEUv6g %2BXZw aYqtaq 0bqfl% 2Fg9IQ a4ajBk vP9nXo QUaueC m3YtLR FvZlgJ JJ8mAn HZtai3 5n4803 AC0Klb HqCV6W iKiQtr MwF INTERFACE [facility] Office [address] [address], [place], [address], 02/02/2025 13:35:04 02/03/20 25 02/02/2025 XR, knee, 4 or more view http:/ [email or web address] ?Encry pted=s hAaTro YD8dLq bEUv6g %2BXZw aYqtaq 0bqfl% 2Fg9IQ a4ajBk vP9nXo QUaueC m3YtLR FvZlgJ JJ8mAn HZtai3 8a1418 AC0Klb HqCV6W iKiQtr MwF INTERFACE [facility] [address] [facility] [address], [place], [address], 02/02/2025 13:35:06 Result Notes Documentation Provider Name and Address Organization Details Recorded Time Xr, Knee, 4 Or More View : [email or web address]? Encrypted=qtWcNtbJP6jCrbT Uv6g%0ADMngFnmgh9trha%2Fg 6EPr8idTzuC9uNjRPmxaRf9Lt XKLhWpzJKY3qTwJRlfk08i249 2LJ2UxnReGMzHvBA8hr95%3D Not Available [facility] 11/28/2023 10:1 6:45 Xr, Knee, 4 Or More View : [email or web address]? Encrypted=nqBxTjaGT9xLotC Uv6g%0ZZXwqScahr0miqr%2Fg 6FAz8nnAubR5kWlNRrutWv4Bd VUFzAlxKIJ1fJsGItzi15x534 9NW4FjaDoQAyGqXX8mm25%3D Not Available [facility] 11/28/2023 10:1 6:46 Xr, Foot, 3 Or More View : [email or web address] Encrypted=aeGrThzXR6fItgQ Uv6g%0EFLxnXryhs8buhy%2Fg 2SOk4ntBwuF0dEvBEjqyQr7Xt MIGdAkrHNI8bReZMtye89c644 0AB3OlzhuBDhGxHxCpkWfA Not Available [facility] 09/04/2024 13:24: 39 Xr, Foot, 3 Or More View : [email or web address] Encrypted=vfHrOvoTP5cUkgJ Uv6g%8HPHmjWkern3nmmx%2Fg 1PHd3gxGtlX4rVoKRzjhWz6Oz ZXUeNbmRMN2lVnPErcg54x856 7PS8CtbyuNCeHrIgDsvZbP Not Available [facility] 09/04/2024 13:24: 40 Xr, Hand, 2 View : [email or web address] Encrypted=qlGrByfOX3dQbsR Uv6g%9IXGdrTxyle6kmgf%2Fg 4LKi9pqFvvQ6jYoYSvtuGi4Vv RTXwFjpBKZ1wIbQQrax38v261 6JK7PrgHuNGKCnIeIguJjS Not Available [facility] 01/26/2025 10:29: 35 Xr, Hand, 2 View : [email or web address] Encrypted=tzLvOstWL2wXgaX Uv6g%0RFOkbFtpsl3hsxs%2Fg 5VQh1rjQctC9aLfBGdvlNu3Sv DDJlVhvXLA4gTuLHsxx54g809 0IO8DldTgJNWWfOhXxlFeL Not Available [facility] 01/26/2025 10:29: 37 Xr, Wrist, 2 View : [email or web address] Encrypted=bvWmTirNU2xDfpZ Uv6g%2EBJpjVxacw6nukp%2Fg 2GKq2rzYqtX2qPcVWftnJx5Gy XGKyYvmSYK8vVfJPftq42n865 9DI5TvfBdRITZwVrDscDbK Not Available [facility] 01/26/2025 10:30: 42 Xr, Wrist, 2 View : [email or web address]? Encrypted=coJdLifYH4hFpzU Uv6g%6XKFafIhrdj7yypx%2Fg 1WMi7xmZazQ5eMeELmvrSx1Ok EPYaRiqUCT2wHwQAvjz17m093 8TN9BmwKxORSToSsMabKyK Not Available [facility] 01/26/2025 10:30: 44 Xr, Knee, 4 Or More View : [email or web address]? Encrypted=xcIwKioRI7qYafY Uv6g%4LUJabSdawc2pqwf%2Fg 7CUi3xtOajB7iLhBMewhNk6Qb ZKYgOrzNDN8nJgSCkcb84o121 2AI3BmwOuJP5KlXtDaqNwF Not Available [facility] 02/02/2025 13:35: 05 Xr, Knee, 4 Or More View : [email or web address] Encrypted=lhOrRsfUA7rTaaU Uv6g%6AWLosAjjdi1qmwh%2Fg 4OFm5fnTkiH1rFkZPrzpCi1Xl UCFjMbyVVQ9fKdTSpyv71g102 3QQ3EhrXgSN6MlTeNhkHrG Not Available [facility] 02/02/2025 13:35: 06 Problems Name Problem SNOMED Code Status Onset Date Resolution Date Notes Provider Name and Address Organization Details Recorded Time Pain in left foot 1435433958073 07 Active 2023 LA serna [facility] 4 13:07:19 Stress fracture of metatarsal bone of left foot 4992870197408 9108 Active 2023 Esmer Simmons PA-C [address] [facility] [address], [place], [address] , [facility] 4 15:30:52 Pain of left knee joint 2836163462669 07 Active 2023 JOHNNIE serna [facility] 4 10:08:21 Pain of left hand 7770095404462 03 Active 2024 YUE serna [facility] 5 10:22:32 Sprain of left wrist 6617020715777 9104 Active 2024 YUE serna [facility] 5 10:54:07 Problem Notes None recorded. Procedures Surgical History Date Name Laterality Status Provider Name and Address Organization Details Recorded Time 5 Knee Kenalog 1cc L/R completed Felipe Flowers PA-C [address], [place], [address], [facility] 02/02/2025 15:02:44 4 Sports Knee 4&1 completed Felipe Flowers PA-C [address], [place], [address], [facility] 11/28/2023 12:30:27 4 Sports Knee 4&1 completed Felipe Flowers PA-C [address], [place], [address], [facility] 09/03/2023 16:40:07 Imaging Results None recorded. Procedure Notes None recorded. Medical Equipment None Reported. Allergies Allergen ID Allergen Name Allergen Category Reaction Reaction Severity Criticality Documentation Date Start Date Code Code System Note Provider Name and Address Organization Details Recorded Time 394256 spironola ctone medicatio n Not available Not available Not available 02/02/2025 9997 RxNorm TAMI LARIVJOSE [facility] 5 13:27:32 960102 gabapenti n medicatio n Not available Not available Not available 02/02/2025 87497 RxNorm TAMI LARIVJOSE [facility] 13:27:41 Medications Name Sig Start Date Stop Date Status Note LastModified by Organization Details LastModified Time tizanidine 2 mg tablet TAKE 1 TABLET BY MOUTH EVERY 8 HOURS, FOR 7 DAYS, NEEDED FOR MUSCLE SPASM 01/26 completed Not Available Not Available Not Available sucralfate 100 mg/mL oral suspension TAKE 10ML BY MOUTH TWICE A DAY active Not Available Not Available No t Available diltiazem CD 240 mg capsule,ext ended release 24 hr TAKE 1 CAPSULE BY MOUTH EVERY DAY active Not Available Not Available No t Available meloxicam 15 mg tablet TAKE 1 TABLET BY MOUTH EVERY DAY WITH A MEAL active Not Available Not Available No t Available prednisone 20 mg tablet TAKE 2 TABS BY MOUTH IN THE MORNING WITH FOOD FOR 3 DAYS THEN 1 TAB FOR 3 DAYS THEN 1/2 TAB X 3 DAYS active Not Available Not Available No [...] Not Available Not Available No t Available pantoprazol e 40 mg tablet,curly yed release TAKE 1 TABLET BY MOUTH EVERY DAY active Not Available Not Available No t Available cyanocobala min (vit B-12) 1,[address] TABLET UNDER TONGUE AND ALLOW TO DISSOLVE FOR AT LEAST30 SECS BEFORE SWALLOWIN G ONCE DAILY active Not Available Not Available No t [...] Not Available Not Available No t Available ondansetron 4 mg disintegrat ing tablet DISSOLVE 1 TABLET BY MOUTH EVERY 12 HOURS ONLY NEEDED FOR NAUSEA active Not Available Not Available No t Available Thalitone 15 mg tablet TAKE 1 TABLET BY MOUTH EVERY DAY 01/26 completed Not Available Not Available Not Available oxycodone 5 mg tablet TAKE 1 TABLET BY MOUTH EVERY 6 HOURS,X3 DAYS NEEDED FOR PAIN 09/02 completed Not Available Not Available Not Available oxycodone HCl-oxycodo ne-ASA oxyCODONE HCl 5MG Tablet 09/02 completed Statu s: 'Curr ent'; Not Available Not Available Not Available Gavilax 17 gram/dose oral powder PLEASE SEE ATTACHED FOR DETAILED DIRECTION S active Not Available Not Available No t Available EC-Naproxen 500 mg tablet,curly yed release TAKE 1 TABLET BY MOUTH TWICE A DAY FOR 5 DAYS 01/26 completed Not Available Not Available Not Available Wegovy 1 mg/0.5 mL subcutaneou s pen injector INJECT 1 MG SUBCUTANE OUS INFUSION EVERY 7 DAYS,X4 WEEK(S) 01/26 completed Not Available Not Available Not Available Wegovy 0.5 mg/0.5 mL subcutaneou s pen injector INJECT 0.5 ML SUBCUTANE OUSLY EVERY WEEK DIRECTED. ROTATE INJECTION SITES (ABDOMEN, THIGH OR UPPER ARM) 01/26 completed Not Available Not Available Not Available Vitals Date Recorded Body height Body mass index (BMI) Body weight Provider Name and Address Organization Details Last Updated DateTime 09/04/2024 172.72 cm 45 kg/m2 732470.34 g Kareen Mcclure [facility] 09/04/2024 13:18:12 Date Recorded Body height Body mass index (BMI) Body weight Provider Name and Address Organization Details Last Updated DateTime 10/18/2023 172.72 cm 45 kg/m2 865305.34 g LA CHAVIS [facility] 10/18/2023 14:28:17 Date Recorded Body height Body mass index (BMI) Body weight Provider Name and Address Organization Details Last Updated DateTime 11/28/2023 172.72 cm 45 kg/m2 423745.34 g JOHNNIE IRVIN [facility] 11/28/2023 10:08:11 Date Recorded Body height Body mass index (BMI) Body weight Provider Name and Address Organization Details Last Updated DateTime 01/26/2025 172.72 cm 40.3 kg/m2 175627.98 g YUE Mack [facility] 01/26/2025 10:25:22 Date Recorded Body height Body mass index (BMI) Body weight Provider Name and Address Organization Details Last Updated DateTime 02/02/2025 172.72 cm 40.1 kg/m2 352030.39 g TAMI TOVAR [facility] 02/02/2025 13:27:23 Social History Question Answer Notes LastModified by Organizat ion Details LastModified Time Tobacco Smoking Status Never Smoker ARLYN serna [facility] 01/26/2025 10:33:26 Are You Blind Or Do You Have Difficulty Seeing? No Information not available 01/26/2025 Are You Deaf Or Do You Have Serious Difficulty Hearing? No Information not available 01/26/2025 Which Of Your Hands Is Dominant? Right Information not available 01/26/2025 What Is Your Relationship Status? Information not available 01/26/2025 Do You Have Difficulty Walking Or Climbing Stairs? No Information not available 01/26/2025 Sex: Unknown Functional Status Question Answer Note LastModified by Organizat ion Details LastModified Time Do you use any illicit or recreational drugs? No Information not available 01/26/2025 Do you or have you ever used any other forms of tobacco or nicotine? No Information not available 01/26/2025 What is your level of alcohol consumption? None Information not available 01/26/2025 Do you have transportation difficulties? No Information not available 01/26/2025 Are you able to walk independently without assistance or assistive devices? YESWOREST Information not available 01/26/2025 Do you have difficulty doing errands alone? No Information not available 01/26/2025 Are you able to care for yourself independently? Yes Information not available 01/26/2025 Do you have difficulty dressing, bathing, grooming, or toileting? No Information not available 01/26/2025 Mental Status Question Answer Note LastModified by Organization D etails LastModified Time Do you have difficulty concentrating, remembering or making decisions? No Information no t available 01/26/2025 Family History Nothing Reported. Medical History Condition Response Coronary Artery Disease N Anxiety/Depression Y Emphysema N COPD N Pacemaker N Vascular Disease N Heart Trouble Y Gastrointestinal Disease Y Autoimmune disease N Inflammatory Joint disease Y Orthotics N Arthritis Y Blood Clot N Acid Reflux (GERD) N Cancer N Stroke N Circulation Problems N Rheumatoid Arthritis N Arrhythmia N Headaches Y Fibromyalgia N Allergies/Hayfever N Breathing or lung disorders N Nerve Disorders N Thyroid Problems N Kidney/Bladder Problems N Anemia N Heart Attack ([place]) N Cholesterol Y Diabetes N Bleeding Disorder Y Seizures/Epilepsy N AIDS/HIV N Congestive Heart Failure (CHF) N Asthma N Peripheral Vascular Disease N Sleep Apnea Y Hepatitis N Heart Disease N Pulmonary Embolism N Hypertension Y Osteoporosis N Past Encounters Encounter ID Performer Location Encounter Start Date Encounter Closed Date Diagnosis/Indication Diagnosis SNOMED-CT Code Diagnosis ICD10 Code Diagnosis IMO Codes Diagnosis Note [id number] Felipe Lionel, PA-C [facility] [address] [place] [address] 09/03/2023 08:29:37 09/24/2023 08:16:25 Pain of right knee joint 6329901524 52229 M25.561 Chondromal acia of right patella 8907250412 0270796 M22.41 [id number] Esmer Simmons PA-C [place] [address] 09/21/2023 12:59:57 10/16/2023 12:01:57 Pain in left foot 4259141719 84669 M79.672 Stress fra cture of metatarsal bone of left foot 6289173750 2609585 M84.375A [id number] Esmer Simmons PA-C [facility] [address] [place] [address] 10/18/2023 14:13:30 11/20/2023 13:16:42 Stress fracture of metatarsal bone of left foot 3675917053 7352726 M84.375A [id number] Felipe Flowers PA-C [facility] [address] [place] [address] 11/28/2023 09:49:01 12/17/2023 11:46:18 Pain of left knee joint 5640719804 41119 M25.099 [id number] Venessa Gomez PA-C [facility] [address] [place] [address] 09/04/2024 12:50:13 09/22/2024 11:18:54 Pain in bilateral feet 3268139690 8024231 M79.671 M79.411 [id number] Sathish Buckley PA-C [facility] [address] [place] [address] 01/26/2025 08:37:35 02/02/2025 15:55:44 Pain of left hand 3083184748 94200 M79.642 [id number] Sprain of left wrist 252 9166962 1347282 S63.502A [id number] RAO Castaneda [address] [place] [address] 02/02/2025 12:24:19 02/09/2025 15:05:09 Pain of left knee joint 9918131490 34247 M25.562 [id number] Health Concerns Section Related Observation LastModified by Organization Detai ls LastModified Time None Recorded Concern Status LastModified by Organization Details LastModified Time None Recorded Advance Directives Directive None Recorded Payers Insurance Date Sequence Insurance Name Policy Number Policy Baez Covered Member ID Baez Member ID Guarantor Name 10/18/2023 1 [facility] DIRECT CONNECTORCARE TYPE I (HMO) Aditya Carmenatty [id number] Aditya Carmenatty 09/02/2024 1 [facility] [id number] Aditya Carmenatty [id number] Aditya Carmenatty 10/18/2023 1 [facility] CONNECTORCARE TYPE I (HMO) Aditya Carmenatty [id number] Aditya Carmenatty 09/02/2024 2 [place] [facility] Aditya Carmenatty [id number] Aditya Carmenatty 02/10/2025 1 [facility] (HMO) [id number] Aditya Carmenatty [id number] Aditya Carmenatty 01/26/2025 2 [facility] [place] (HMO) [id number] Aditya Carmenatty [id number] Aditya Carmenatty Notes Date Note Type Note Provider Name and Address Organization Details Recorded Time 10/18/2023 text/html I am seeing the patient today under the supervision of Dr. Londono who was available but who did not see the patient. History is taken from the patient HPI: Patient here today in follow-up of his MRI of his left foot. MRI reviewed with him at this time shows edema and what is likely to be a stress fracture in the left fourth metatarsal. When I last saw the patient he was in a cam walking boot. He tells me about 10 days after his pain resolved and he was able to wean out of the boot and he subsequently returned to work. He tells me he still wears the cam walking boot on weekends if he knows he is going to be on his feet more. He is tolerating working. He is pleased with this. 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 Past family, medical, social history and review of systems has been reviewed, updated and is located in the patient s chart. EXAMINATION: Patient has no pain to palpation in his left foot currently. He is ambulatory in no distress. He is wearing comfortable sneakers. He is alert oriented x 3 mood and affect appropriate within normal limits. He does not have any significant swelling in his foot at this time. DIAGNOSIS: Left foot fourth metatarsal stress fracture 09/16/2023 currently asymptomatic MEDICAL DECISION MAKING: Patient is currently doing well and has no symptoms. Currently not wearing the boot. He may continue like this so long as he is tolerating it. If his pain returns I would recommend he immediately go back into the boot and get off his foot. He verbalized understanding of this. He may follow-up with us as needed. Today's visit involved examining the patient, reviewing the history, reviewing the radiographic studies, counseling the patient regarding treatment options, and the administrative tasks including placing orders, preparing patient information and home handouts and preparing the visit note. This note was generated with [facility] speech recognition yard goods salesperson dictation software. Please excuse any errors that may have been overlooked during review of this note. Sometimes, these errors may affect the content or meaning of a given sentence. Please call for corrections. Esmer Simmons PA-C [address] [place] [address] [address], [place], [address], [facility] - [facility] 10/18/2023 15:35:16 11/28/2023 text/html I am seeing the patient today under the supervision of who was available but who did not see the patient. Chief Complaint The patient presents today for recheck of left knee pain. He is known to have right knee patellofemoral syndrome treated well with cortisone and a Genutrain knee sleeve. States in regards to the left knee has similar symptoms. Difficulty with stairs. Instability with walking.. Is known to have knee arthritis treated conservatively to this point with 1 months relief of symptoms. Presents today for recheck secondary to increased knee pain. Past Medical/Surgical History Reviewed today, otherwise unchanged per intake sheet. Physical Findings General Appearance: Well developed. In no acute distress. Musculoskeletal System: Knee: General/bilateral: No laxity of the knee. Right Knee: Medial aspect was tender on palpation. No erythema. No warmth. Left Knee: Medial aspect was tender on palpation. No erythema. No warmth. Musculoskeletal Scales: General/bilateral: Mild effusion noted. Neurological: Oriented to time, place, and person. Gait And Stance: Normal. Psychiatric: Mood was appropriate to the affect. Left knee 0-120 degrees of flexion with discomfort. X-rays ordered obtained and reviewed today in the office of the left knee show lateral tilt of the patella. Lateral facet space narrowing. Similar to the right side. Assessment Chondromalacia patella left knee Plan More than 50% of todays visit was spent on direct patient counseling regarding their knee condition and treatment options both operative with knee arthroplasty and non-operative, including oral medications and injection therapy. After discussion, my clinical decision was to go forth with an intra-articular cortisone injection. After explaining risks and benefits, under meticulous aseptic technique, the knee was injected with, 1cc of Kenalog 40mgs and 4 cc of Marcaine 1/4%. They tolerated the procedures well. Post injection precautions reviewed. Follow up with us in 3 months for further discussion of total knee replacement surgery versus continued conservative treatment.Recommended Genutrain knee sleeve for the left. Reasonable expectations were discussed. Follow-up arranged. All questions been answered.The patient is ambulatory, but has weakness and/or instability of their extremity which requires stabilization from this semi-rigid/rigid orthosis to improve their function.Verbal and written instructions for the use and application of this item were given. Patient was instructed that should the brace result in increased pain, decreased sensation, increased swelling or an overall worsening of their medical condition, to pelase contact our office immediately. Felipe Flowers PA-C [address] [facility] [address], [place], [address], [facility] 11/28/2023 12:31:20 09/04/2024 text/html I am seeing this patient under the supervision of Dr. Joy who was available but who did not see the patient. HPI: Patient is a 39-year-old male presenting to the office today for evaluation of bilateral foot reports he is a nondiabetic. Pain and numbness and tingling. Reports this has been ongoing for a while now. Denies any recent falls or injuries or inciting event that could have led to his symptoms. Reports his symptoms occur even at rest. Describes it as a numb and tingling and burning sensation. Reports sometimes he gets these sensations around his right thigh as well. Does mention that he has had previous spine surgery on his lumbar spine and was told that he might develop neuropathy. Denies any recent nerve study tests. Past family, medical, social history and review of systems has been reviewed, updated and is located in the patient's chart. Examination: The patient is well appearing, alert and oriented x3 and in no acute distress. On inspection of the bilateral foot and ankle, there is no edema, erythema, ecchymosis or deformity. Skin is intact, no open wounds. Nontender about the foot and ankle. Range of motion is full and strength is intact. Neurovascularly intact distally. No gross instability. Calf is supple, nontender. Achilles tendon nontender, no palpable defect noted. . X-rays ordered, obtained and reviewed independently today at [facility]: 5 view x-rays of bilateral foot reveal no acute fractures or dislocations. Impression: Bilateral lower extremity neuropathy Plan: I discussed my findings and situation with the patient. We discussed potential treatment options at this time. We will order an EMG of bilateral lower extremities for further evaluation of his neuropathy. He was also given a pain management referral to help with his nerve pain and neuropathy. Patient will follow-up for EMG review. If things worsen or change in the meantime he will call the office. Patient understands and agrees with this plan. All questions were answered. Speech recognition yard goods salesperson software was used to create portions of this document. An attempt at proofreading has been made to minimize errors. Please call for corrections. Venessa Gomez PA-C [address] [place], [place] [address] [address] [address], [place], [address], [facility] 09/04/2024 14:11:16 02/02/2025 text/html I am seeing the patient today under the supervision of Dr. Grajeda who was available but who did not see the patient.History this pleasant gentleman presents today for a new problem urgent care of left knee pain. He has been seen here in the past known to have a history of gout. Is on allopurinol. Without injury he developed pain about his left knee. The only thing he can relate was he did some work on his 's car on Sunday did a slight amount of dancing with her on Sunday night however Sunday and into Sunday developed swelling and pain about the left knee. Cannot recall any specific injury. Pain is located generally about the knee. Reports no fever chills recent illness or infectionPMH/PSH/MEDS /ALL/FMH/SOC HX/ROS are reviewed in detail per my medical intake sheet.General Exam: Vital signs are as noted belowMental status: Alert and lucid. 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 No spasticity or clonus noted.Extremities:Luke ves are soft non tender, skin intact.Orthopedic Examination:Patient has a negative straight leg raise bilaterally.Right Knee: [No tenderness. No effusion, erythema or warmth. Full range of motion. Negative Becka's test. No laxity.Left Knee: Generalized tenderness to palpation. Mild effusion. Minimal warmth. No erythema. Range of motion somewhat limited with -5 degrees of extension flexion to 110 degrees with pain throughout active and passive motion. No laxity. Negative Becka's test.Antalgic gait pattern favoring the left side. Full strength and sensation distally.X-rays: Radiographs 4 views of the left knee show minimal lateral patella facet arthritis.Assessment: Left knee inflammatory arthritis most likely flareup of goutPLAN: In regards to his left knee would recommend continue his allopurinol. Continue with Tylenol and anti-inflammatories. Discussed with him the recommended a intra-articular cortisone. After reviewing risks and benefits the patient's left knee was injected with 1 cc of Kenalog 40 mg/cc 4 cc of Marcaine 1/4%. Tolerated this procedure well. Postinjection precautions reviewed. Follow-up with us as needed.[facility] speech recognition yard goods salesperson software was used to create portions of this document. An attempt at proofreading has been made to minimize errors. Please call for corrections. Felipe Flowers PA-C [address] [facility] [address] [facility], [place], [address], [place] - [facility] 02/02/2025 15:03:03
== END 2025-02-25 09:28 | disposition home or self-care (01) ==
LOC: HO.HBST 09:14
PROVIDERS: PCP Nurse Practitioner Family; Visit Provider Counselor Mental Health
DX: F43.20 Adjustment disorder, unspecified (principal); Z98.84 Bariatric surgery status
CPT/HCPCS: 90832

== ENCOUNTER 2025-02-25 14:55 | Outpatient (AMB) | payer OTHER, SELFPAY ==
--- NOTE | 2025-02-25 15:18 | A.OFFVIS_ITS ---
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 Instructions: Resume on 02/24/25. cyanocobalamin (vitamin B-12) 1,000 mcg sublingual DAILY diltiazem HCl ER (Tiazac) 240 mg PO DAILY Held on 02/18/25. Instructions: Resume on 02/19/25. Check your blood pressure every morning as soon as you wake up and send it to Dr. Nick. Do no take the blood pressure medication if the blood pressure is below 120/70. Wait every day to hear back from Dr. Nick before you take the medication. pantoprazole 40 mg PO DAILY@0630 HPI Comments Details: Pt is s/p 1 week LSG 02/17/2025. No pain. No nausea. Tolerating 3 Premier shakes, 4oz/4oz. Hydration is adequate- 48 oz in addition to shakes. [facility] Medical History (Updated 02/19/25 @ 00:02 by Background Daemon) Gout Hx of hypokalemia MELANIA on CPAP Ascending aorta dilation Bicuspid aortic valve BMI 38.0-38.9,adult Obesity History of herniated intervertebral disc Asthma DJD (degenerative joint disease) GERD (gastroesophageal reflux disease) Aortic stenosis Hypertension Morbid obesity Surgical History (Updated 02/19/25 @ 00:02 by Background Daemon) Hx of colonoscopy History of esophagogastroduodenoscopy (EGD) (01/15/25) History of back surgery (~2019) Family History (Updated 11/19/24 @ 14:58 by Krystina Bowers CMA) Mother Hypertension Heart problem Father Diabetes type 2 Hypertension Sleep apnea Daughter No problems noted. Daughter No problems noted. Social History Household Members: Family Housing: House Are you a primary career coordinator to a significant other at home: No Do you presently have visiting nurse or other home services: No 75 years or older and lives alone: No Alcohol intake: current Alcohol intake frequency: does not drink Patient Tobacco Use Status: Never used Tobacco e-Cigarette/Vaping Use: Never Used Current occupational status: employed Physical Exam Vital Signs: Last Vital Signs Temp 97.4 F 02/25/25 15:19 Pulse 73 02/25/25 15:19 BP 136/75 02/25/25 15:19 Pulse Ox 99 02/25/25 15:19 Oxygen Delivery Method Room Air 02/25/25 15:19 BMI result Body Mass Index 36.6 Const General: cooperative, comfortable and no acute distress Orientation/consciousness: patient oriented x3 GI Other: soft, nontender, nondistended, steri-strips c/d/i Neuro General: patient oriented x3 Assessment & Plan Assessment & Plan (1) Obesity: Code(s): E66.9 - Obesity, unspecified Category: Medical Qualifiers: Obesity type: due to excess calories Obesity classification: adult class 2 (BMI 35 - 39.9) Serious obesity comorbidity presence: with serious comorbidity Body mass index: BMI 38.0-38.9 Qualified Code(s): E66.812 - Obesity, class 2; E66.01 - Morbid (severe) obesity due to excess calories; Z68.38 - Body mass index [BMI] 38.0-38.9, adult (2) S/P laparoscopic sleeve gastrectomy: Code(s): Z98.84 - Bariatric surgery status Category: Surgical Plan May shower tomorrow but no bath or submersion of abdomen in water. May start exercise in 2 days.? No abdominal exercises x 6 weeks. Abdominal binder for the next 2 weeks with activity or exercise. Continue meal plan per Dr Clark until next f/u in 5 weeks. Reviewed pantoprazole and carafate dosing. Reminded of the pace of drinking 2 mL/min or 1oz per 15 min. Will be emailed link for post op video for review. Return to work note given for 6w postop due to pt's job requiring a lot of heavy lifting without accommodations.
[2025-02-25 15:19] VITALS: BP 136/75; PULSE 73; TEMP 36.3; O2SAT 99; BMI 36.6
--- OUTSIDE RECORDS SUMMARY | 2025-02-25 18:39 | XMS_ITS | Clinical Summary ---
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
--- OUTSIDE RECORDS SUMMARY | 2025-02-25 18:39 | XMS_ITS | Clinical Summary ---
Author Organization [address] [place] [address] [place] [phone] Phone Care Team Providers Care Shearing Supervisor Name Role Phone Thomas Farmer MD Primary Care Provider [phone] Allergies Active Allergy Reactions Criticality Noted Date [...] EDT Office Visit Plastic & Reconstructive Surgery [address] [phone] Nhi Alaniz PA Lipoma of face (Primary Dx) 12/05/2024 1:00 PM EDT Procedure visit Plastic & Reconstructive Surgery [address] [phone] Greg Ugarte DO Disorder of soft tissue [...] forehead-excision : -LIPOMA 12/08/2024 10:35 AM EDT [facility] Clinical Information Disorder of soft tissue M79.9 12/08/2024 10:35 AM EDT [facility] Gross Description A. Forehead, [...] de la torre-white to yellow fibroadipose tissue. Cleaner Carpet And Upholstery sections of both tissues are submitted one cassette, three pieces. BG 12/08/2024 10:35 AM EDT [facility] Disclaimer Unless otherwise specified, all tissue is 10% NB formalin fixed and paraffin embedded. 12/08/2024 10:35 AM EDT [facility] Tissue Forehead structure / Unknown Non-blood Collection / Unknown 12/05/2024 1:58 PM EDT 12/05/2024 1:58 PM EDT us Greg Ugarte DO LAB PATHOLOGY ORDERABLES Fin al Result [facility] [address] [place] [address], from Last 3 Months Insurance [facility] Care Teams Shearing Supervisor Relationship Specialty Start Date End Date Thomas Farmer MD [address] [place] [phone] PCP - General Internal Medicine 10/15/24
== END 2025-02-25 16:24 | disposition home or self-care (01) ==
LOC: HO.HBS 14:56
PROVIDERS: PCP Nurse Practitioner Family; Visit Provider Physician Assistant Surgical
DX: E66.9 Obesity, unspecified (principal); Z68.38 Body mass index [BMI] 38.0-38.9, adult; Z90.3 Acquired absence of stomach [part of]; Z98.84 Bariatric surgery status
CPT/HCPCS: 99024

== ENCOUNTER 2025-04-17 11:32 | Outpatient (AMB) | payer OTHER, SELFPAY ==
--- NOTE | 2025-04-17 11:04 | MHC.OFFVISWM ---
VS Expanded 04/17/25 11:47 Height 5 ft 8 in Weight 216 lb BMI 32.8 Intake Visit Reasons: TV PO LSG 02/17/25 Allergies hydrochlorothiazide Adverse Reaction (Mild, Verified 02/25/25 15:21) lowers potasium spironolactone Adverse Reaction (Verified 02/25/25 15:21) hypokalemia, lump on chest Medication List - Last Reconciled 04/17/25 by Karmen Luevano CNP allopurinol 100 mg PO DAILY Held on 02/17/25. Instructions: Resume on 02/24/25. diltiazem HCl ER (Tiazac) 240 mg PO DAILY Held on 02/18/25. Instructions: Resume on 02/19/25. Check your blood pressure every morning as soon as you wake up and send it to Dr. Nick. Do no take the blood pressure medication if the blood pressure is below 120/70. Wait every day to hear back from Dr. Nick before you take the medication. multivitamin 1 tab PO DAILY pantoprazole 40 mg PO DAILY@0630 sucralfate 10 mL PO BID HPI Comments Details: 39 year old man s/p LSG on?02/17/2025. Presents for 2 month post op visit. Starting weight was 296.8 lbs. Operative weight was 265.2 lbs. Weight at last visit on 02/25/2025 was 240.8 lbs with a BMI of 36.6 Checks weight every 2 weeks. Weight a few days ago was 216 lbs, representing a 80.8 lbs weight loss since start of the program 12/09/2024. BMI today of 32.8.? No complaints of nausea, abdominal pain or reflux, or constipation. Vomited x2 recently. These episodes occured shortly after eating a protein bar. He states he cuts them into pieces and eats them slowly, so unsure why this occurred. He felt the sensation to burp and then vomited. But otherwise no concerns. Still taking pantoprazole and carafate Diltiazem still on hold, sees line and frame poler in 2 weeks. BP checks have been normal takes it once per week. 120s/70s-80s. Highest was at the dentist, 135/80s. States he feels fine not taking it, mentions he was dizzy when taking it. Allopurinol daily for gout. Has knee pain. Goes to [facility] for this and [facility]. 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 PFSH Medical History (Updated 03/05/25 @ 00:02 by Background Daemon) Gout Hx of hypokalemia MELANIA on CPAP Ascending aorta dilation Bicuspid aortic valve BMI 38.0-38.9,adult Obesity History of herniated intervertebral disc Asthma DJD (degenerative joint disease) GERD (gastroesophageal reflux disease) Aortic stenosis Hypertension Morbid obesity Surgical History (Updated 03/05/25 @ 00:02 by Background Daemon) Hx of colonoscopy History of esophagogastroduodenoscopy (EGD) (01/15/25) History of back surgery (~2019) Family History (Updated 11/19/24 @ 14:58 by Krystina Bowers CMA) Mother Hypertension Heart problem Father Diabetes type 2 Hypertension Sleep apnea Daughter No problems noted. Daughter No problems noted. Social History Household Members: Family Housing: House Are you a primary nurse healthcare manager to a significant other at home: No Do you presently have visiting nurse or other home services: No 75 years or older and lives alone: No Alcohol intake: current Alcohol intake frequency: does not drink Patient Tobacco Use Status: Never used Tobacco e-Cigarette/Vaping Use: Never Used Current occupational status: employed Physical Exam Vital Signs: BMI result Body Mass Index 32.8 Telehealth Telehealth Telehealth Platform: Telephone Location of provider rendering services: practice address Location of patient: address on file Patient Identification confirmed using: Name, : Yes Telehealth method: voice only Patient verbally consented to treatment: Yes Patient verbally consented to billing insurance company: Yes Patient informed of any privacy concerns related to visit: Yes Minutes spent on Phone/Video with Pt.: 13 Assessment & Plan Assessment & Plan (1) S/P laparoscopic sleeve gastrectomy: Code(s): Z98.84 - Bariatric surgery status Category: Surgical Plan Plan: - Cleared for all exercise, and he is currently exercising 6x per week. Main obstacle to exercise is his knee pain r/t gout. Goal of burning 2000 calories/week - Continue meal plan per Dr Clark until told otherwise - Continue bariatric MVI - Reviewed pantoprazole and carafate dosing, will finish in approx. 1 month - Will order labs at next visit Follow up: 4 months, for a 6 month post op visit
[2025-04-17 11:47] VITALS: BMI 32.8
== END 2025-04-17 11:52 | disposition home or self-care (01) ==
LOC: HO.HBS 11:32
PROVIDERS: PCP Nurse Practitioner Family; Visit Provider Nurse Practitioner
DX: Z98.84 Bariatric surgery status (principal)
CPT/HCPCS: 99024